=== PATIENT | female | born 1970 | race African-American/Black ===

== ENCOUNTER 2016-10-05 17:31 | Emergency (ER) | payer BC, OTHER ==
[~2016-10-05] VITALS: Ht 162.6 cm; Wt 104.3 kg
[~2016-10-05 17:31] MED LIST: ACCL20 PO; IPRA1AER2 INH; LORA10TA5 PO; SYMIN160 PO
[2016-10-05 17:36] VITALS: TEMP 36.9; Ht 162.6 cm; Wt 104.3 kg
[2016-10-05] MEDS ORDERED: SODIUM CHLORIDE 0.9% 1000ML 1,000 ML IV STA (17:56)
[2016-10-05] MEDS ORDERED: KETOROLAC TROMETHAMINE 30 MG/ML VIAL IV STA (17:56)
[2016-10-05 18:13] LABS: BASO % 0.8 %; BASO ABS # 0.05 K/uL (0-0.2); COMPLETE YES; EOS % 6.4 %; HEMATOCRIT 39.7 % (37-47); IG% 0.2 %; LYMPH % 36.3 %; LYMPH ABS # 2.39 K/uL (1.2-3.4); MEAN CORPUSCULAR HEMOGLOBIN 26.7 pg (25-34); MEAN PLATELET VOLUME 9.1 fL (7.4-10.4); MONO % 5.6 %; NEUT % 50.7 %; PLATELET COUNT 361 K/uL (130-400); WHITE BLOOD COUNT 6.59 K/uL (4.8-10.8)
[2016-10-05] MEDS ORDERED: HYDR12.55 PO (18:19)
[2016-10-05 18:32] LABS: ALT/SGPT 22 U/L (12-78); AST/SGOT 13 U/L (15-37); BLOOD UREA NITROGEN 12 mg/dl (7-18); BUN/CREATININE RATIO 12.8 (10-20); CALCIUM 9.1 mg/dl (8.5-10.1); CARBON DIOXIDE 31 mmol/L (21-32); CHLORIDE 101 mmol/L (98-107); CREATININE 0.95 mg/dl (0.60-1.20); GLUCOSE 64 mg/dl (70-99); POTASSIUM 3.2 mmol/L (3.5-5.1); SODIUM 139 mmol/L (136-145)
--- NOTE | 2016-10-05 18:34 | DIAGNOSTIC IMAGING REPORT ---
CHEST ONE VIEW PORTABLE CLINICAL HISTORY: Fever. Sepsis. COMPARISON STUDY: Chest radiograph June 02, 2015. FINDINGS: No pneumothorax is present. Lung volumes are mildly diminished. There is no evidence of pulmonary edema. Cardiomediastinal silhouette is stable. This study is compromised by overlying artifact. Minimal left basilar opacity is suggestive of atelectasis. IMPRESSION: 1. No acute findings. 2. Mild bibasilar opacities which favor atelectasis. Mildly diminished lung volumes. 3. Nodular densities which project over the left upper lung likely due to overlying soft tissue artifact. Electronically signed by: Kingsley Arita M.D. 10/05/2016 6:31 PM Dictated Date/Time: 10/05/2016 6:30 PM
[2016-10-05 18:43] LABS: ALKALINE PHOSPHATASE 96 U/L (45-117)
[2016-10-05] MEDS ORDERED: OPTIRAY 320 IV PRN (20:15)
--- NOTE | 2016-10-05 20:40 | DIAGNOSTIC IMAGING REPORT ---
CT ANGIOGRAPHY OF THE CHEST, PULMONARY EMBOLUS PROTOCOL CLINICAL HISTORY: Chest pain. COMPARISON STUDY: Chest CT July 19, 2012 and chest radiograph performed earlier today. TECHNIQUE: Following IV administration of 81 mL of Optiray-320, helical axial images of the chest were obtained utilizing the pulmonary embolus protocol. Maximal intensity projections and sagittal and coronal reformats were viewed on an independent 3D workstation. IV contrast was administered without complication. CT DOSE: 424.76 mGy.cm FINDINGS: No pulmonary emboli are identified. There is borderline cardiomegaly. There is no evidence of thoracic aortic dissection. Mild elevation the right hemidiaphragm is noted. Groundglass opacities represent atelectasis. There is no consolidation. There is mild bronchial wall thickening. No pneumothorax or pleural effusion is present. The bony thorax is unremarkable. The upper abdomen is unremarkable. IMPRESSION: 1. No pulmonary emboli identified. 2. Ground glass opacities suggestive of atelectasis. No acute intrathoracic findings. Electronically signed by: Kingsley Arita M.D. 10/05/2016 8:38 PM Dictated Date/Time: 10/05/2016 8:30 PM
[2016-10-05 20:51] VITALS: BP 118/82; PULSE 76; O2SAT 99
--- NOTE | 2016-10-05 20:53 | EMERGENCY ROOM VISIT NOTE ---
History Report prepared by Bradleyibtamiko: Sangeetha Juárez Under the Supervision of: Dr. Marcelo Stone D.O. First contact with patient: 17:51 Chief Complaint: CARDIAC ASSESSMENT Stated Complaint: CHEST PAIN Nursing Triage Summary: Patient presents with a left sided chest pain reproducible with deep inspiration, movement and palpation. Negative cough. Negative nausea/vomiting/diaphoresis. Patient awake and oriented. History of Present Illness The patient is a 46 year old female who presents to the Emergency Room with complaints of intermittent left-sided chest pain that started earlier today. She describes the pain as an ache in the muscle and states that it becomes sharp when she moves or takes a deep breath. She is also experiencing some shortness of breath but she thinks that may be a result of her asthma. She denies fevers, cough, recent illness, nausea, and vomiting. The patient denies any cardiac history along with any history of blood clots. The patient does not smoke. Source of History: patient Onset: earlier today Position: chest (left) Quality: ache, sharp (with movement or deep breathing) Timing: intermittent Modifying Factors (Worsening): breathing (deep breathing), movement Associated Symptoms: + SOB, No cough, No fevers, No nausea, No vomiting Note: no recent illness Review of Systems See HPI for pertinent positives & negatives. A total of 10 systems reviewed and were otherwise negative. Past Medical & Surgical Medical Problems: (1) Asthma Family History Cancer Social History Smoking Status: Never Smoker Alcohol Use: none Drug Use: none Marital Status: Housing Status: lives with family Occupation Status: employed Current/Historical Medications Scheduled Budesonide/Formoterol Fumarate (Symbicort 160/4.5 Inhaler), 1 PUFF PO BID Hydrochlorothiazide (Hydrochlorothiazide), 12.5 MG PO DAILY Ipratropium-Albuterol (Combivent Respimat), 1 PUFF INH QID Zafirlukast (Zafirlukast), 20 MG PO BID Allergies Coded Allergies: No Known Allergies (Verified , 06/02/15) Physical Exam Vital Signs Date Time Temp Pulse Resp B/P Pulse Ox O2 Delivery O2 Flow Rate FiO2 10/05/16 20:51 76 16 118/82 99 10/05/16 18:50 77 16 142/87 100 Room Air 10/05/16 17:59 72 10/05/16 17:46 Room Air 10/05/16 17:36 36.9 82 18 161/107 99 Room Air Physical Exam CONSTITUTIONAL/VITAL SIGNS: Reviewed / noted above. GENERAL: Non-toxic in appearance. INTEGUMENTARY: Warm, dry, and [place]. HEAD: Normocephalic. EYES: without scleral icterus or trauma. ENT/OROPHARYNX: clear and moist. LYMPHADENOPATHY/NECK: Is supple without lymphadenopathy or meningismus. RESPIRATORY: Lungs clear and equal. CARDIOVASCULAR: Regular rate and rhythm. GI/ABDOMEN: Soft and nontender. No organomegaly or pulsatile mass. No rebound or guarding. Normal bowel sounds. EXTREMITIES: Warm and well perfused. BACK: No CVA tenderness. NEUROLOGICAL: Intact without focal deficits. PSYCHIATRIC: normal affect. MUSCULOSKELETAL: Normally developed with good muscle tone. Medical Decision & Procedures ER Provider Diagnostic Interpretation: X ray results and stated below per my interpretation and radiology interpretation. CHEST ONE VIEW PORTABLE CLINICAL HISTORY: Fever. Sepsis. COMPARISON STUDY: Chest radiograph June 02, 2015. FINDINGS: No pneumothorax is present. Lung volumes are mildly diminished. There is no evidence of pulmonary edema. Cardiomediastinal silhouette is stable. This study is compromised by overlying artifact. Minimal left basilar opacity is suggestive of atelectasis. IMPRESSION: 1. No acute findings. 2. Mild bibasilar opacities which favor atelectasis. Mildly diminished lung volumes. 3. Nodular densities which project over the left upper lung likely due to overlying soft tissue artifact. Electronically signed by: Kingsley Arita M.D. 10/05/2016 6:31 PM Dictated Date/Time: 10/05/2016 6:[address] ANGIOGRAPHY OF THE CHEST, PULMONARY EMBOLUS PROTOCOL CLINICAL HISTORY: Chest pain. COMPARISON STUDY: Chest CT July 19, 2012 and chest radiograph performed earlier today. TECHNIQUE: Following IV administration of 81 mL of Optiray-320, helical axial images of the chest were obtained utilizing the pulmonary embolus protocol. Maximal intensity projections and sagittal and coronal reformats were viewed on an independent 3D workstation. IV contrast was administered without complication. CT DOSE: 424.76 mGy.cm FINDINGS: No pulmonary emboli are identified. There is borderline cardiomegaly. There is no evidence of thoracic aortic dissection. Mild elevation the right hemidiaphragm is noted. Groundglass opacities represent atelectasis. There is no consolidation. There is mild bronchial wall thickening. No pneumothorax or pleural effusion is present. The bony thorax is unremarkable. The upper abdomen is unremarkable. IMPRESSION: 1. No pulmonary emboli identified. 2. Ground glass opacities suggestive of atelectasis. No acute intrathoracic findings. Electronically signed by: Kingsley Arita M.D. 10/05/2016 8:38 PM Dictated Date/Time: 10/05/2016 8:30 PM Laboratory Results 10/05/16 18:00 Red Blood Count 4.90, Mean Corpuscular Volume 81.0, Mean Corpuscular Hemoglobin 26.7, Mean Corpuscular Hemoglobin Concent 33.0, Mean Platelet Volume 9.1, Neutrophils (%) (Auto) 50.7, Lymphocytes (%) (Auto) 36.3, Monocytes (%) (Auto) 5.6, Eosinophils (%) (Auto) 6.4, Basophils (%) (Auto) 0.8, Neutrophils # (Auto) 3.35, Lymphocytes # (Auto) 2.39, Monocytes # (Auto) 0.37, Eosinophils # (Auto) 0.42, Basophils # (Auto) 0.05 10/05/16 18:00 Test 10/05/16 18:00 White Blood Count 6.59 K/uL (4.8-10.8) Red Blood Count 4.90 M/uL (4.2-5.4) Hemoglobin 13.1 g/dL (12.0-16.0) Hematocrit 39.7 % (37-47) Mean Corpuscular Volume 81.0 fL (80-100) Mean Corpuscular Hemoglobin 26.7 pg (25-34) Mean Corpuscular Hemoglobin Concent 33.0 g/dl (32-36) Platelet Count 361 K/uL (130-400) Mean Platelet Volume 9.1 fL (7.4-10.4) Neutrophils (%) (Auto) 50.7 % Lymphocytes (%) (Auto) 36.3 % Monocytes (%) (Auto) 5.6 % Eosinophils (%) (Auto) 6.4 % Basophils (%) (Auto) 0.8 % Neutrophils # (Auto) 3.35 K/uL (1.4-6.5) Lymphocytes # (Auto) 2.39 K/uL (1.2-3.4) Monocytes # (Auto) 0.37 K/uL (0.11-0.59) Eosinophils # (Auto) 0.42 K/uL (0-0.5) Basophils # (Auto) 0.05 K/uL (0-0.2) RDW Standard Deviation 42.8 fL (36.4-46.3) RDW Coefficient of Variation 14.5 % (11.5-14.5) Immature Granulocyte % (Auto) 0.2 % Immature Granulocyte # (Auto) 0.01 K/uL (0.00-0.02) Prothrombin Time 11.0 SECONDS (9.0-12.0) Prothromb Time International Ratio 1.0 (0.9-1.1) Activated Partial Thromboplast Time 26.5 SECONDS (21.0-31.0) Partial Thromboplastin Ratio 1.0 D-Dimer 700 ug/L FEU (0-500) Anion Gap 7.0 mmol/L (3-11) Est Creatinine Clear Calc Drug Dose 85.2 ml/min Estimated GFR () 82.1 Estimated GFR (Non- 70.8 BUN/Creatinine Ratio 12.8 (10-20) Calcium Level 9.1 mg/dl (8.5-10.1) Total Bilirubin 0.2 mg/dl (0.2-1) Direct Bilirubin < 0.1 mg/dl (0-0.2) Aspartate Amino Transf (AST/SGOT) 13 U/L (15-37) Alanine Aminotransferase (ALT/SGPT) 22 U/L (12-78) Alkaline Phosphatase 96 U/L (45-117) Total Creatine Kinase 135 U/L (26-192) Creatine Kinase MB < 0.5 ng/ml (0.5-3.6) Creatine Kinase MB Ratio (0-3.0) Troponin I < 0.015 ng/ml (0-0.045) Total Protein 8.1 gm/dl (6.4-8.2) Albumin 3.8 gm/dl (3.4-5.0) Lipase 218 U/L (73-393) Thyroid Stimulating Hormone (TSH) 1.490 uIu/ml (0.300-4.500) Laboratory results as stated above per my review. Medications Administered Medications (Trade) Dose Ordered Sig/Lenny Route Start Time Stop Time Status Last Admin Dose Admin Sodium Chloride (Nss 1000ml) 1,000 ml @ 999 mls/hr Q1H1M STAT IV 10/05/16 17:56 10/05/16 18:56 DC 10/05/16 18:10 999 MLS/HR Ketorolac Tromethamine (Toradol Inj) 30 mg NOW STAT IV 10/05/16 17:56 10/05/16 17:58 DC 10/05/16 18:08 30 MG ECG Indication: chest pain Rate (beats per minute): 73 Rhythm: normal sinus Findings: no acute ischemic change, no ectopy ED Course 1751: Previous medical records were reviewed. The patient was evaluated in room A3. A complete history and physical examination was performed. 1755: Ordered Toradol Inj 30 mg IV, Sodium Chloride 1000 ml @ 999 mls/hr IV 2003: I reassessed the patient. I informed her of her D-dimer results and told her that she needs a CT scan to rule out a pulmonary embolus. 2054: On reevaluation, the patient is doing well. I discussed the results and findings with the patient. She verbalized agreement of the treatment plan. She was discharged home. Medical Decision The differential was considered includes acute myocardial infarction, acute coronary syndrome, myocarditis, pericarditis, pericardial effusions /tamponad, esophageal perforation, thoracic aortic dissection, pulmonary embolism, pneumonia, pneumothorax, pancreatitis, shingles, acute cholecystitis, perforated abdominal viscus. This is a 46-year-old female who presents to the ED with a chief complaint of chest pain. The patient states it is sharp and achy pain and worse with deep breathing, certain movements such as rotation and bending over. She has a little associated shortness of breath but attributes this to her baseline asthma. The patient denies any nausea or vomiting. She has not had any recent illness or cough. Her vital signs are stable. Physical exam was unremarkable with the exception of some reproducible pain with certain movements. EKG shows a normal sinus rhythm at a rate of 73. CBC is normal. TSH is normal. Troponin is negative. D-dimer is elevated at 700. Chest x-ray did not show acute disease. A CT scan of the chest was negative for PE or other acute process. The patient was told the results. She is treated with IV Toradol. She is felt to be stable for discharge and outpatient follow-up. Impression Primary Impression: Chest wall pain Scribe Attestation The scribe's documentation has been prepared under my direction and personally reviewed by me in its entirety. I confirm that the note above accurately reflects all work, treatment, procedures, and medical decision making performed by me. Departure Information Dispostion Home / Self-Care Referrals RV. Hernandez MD (PCP) Forms IMPORTANT VISIT INFORMATION Patient Instructions A Signature Page, Chest Pain - [facility], [facility] Additional Instructions Test results did not show any serious cause for your symptoms. Take ibuprofen 600 mg every 6 hours for pain. Follow-up with your doctor if symptoms don't improve over the next 5-7 days. Return here for worsening.
== END 2016-10-05 21:38 | disposition home or self-care (01) ==
LOC: C.EDB 17:32 → C.EDA 21:38
DX: R07.89 Other chest pain (principal); J45.909 Unspecified asthma, uncomplicated

== ENCOUNTER 2016-11-08 17:12 | Emergency (ER) | payer OTHER ==
[~2016-11-08] VITALS: Ht 162.6 cm; Wt 103.2 kg
[~2016-11-08 17:12] MED LIST changes: +HYDR12.55 PO; -LORA10TA5 PO
[2016-11-08 17:17] VITALS: TEMP 37; Ht 162.6 cm; Wt 103.2 kg
[2016-11-08] MEDS ORDERED: ACETAMINOPHEN 500 MG TAB PO STA (17:54)
[2016-11-08] MEDS ORDERED: IBUPROFEN 200 MG TAB PO STA (17:54)
--- NOTE | 2016-11-08 17:59 | EMERGENCY ROOM VISIT NOTE ---
History Report prepared by Jammie: Cale Downey Under the Supervision of: Dr. Yann Piper M.D. First contact with patient: 17:44 Chief Complaint: CHEST PAIN Stated Complaint: CHEST PAIN Nursing Triage Summary: feeling fatiqued, having chest pains, I felt I had to belch all day. "I have appointment with my dr tomorrow." hx asthma History of Present Illness The patient is a 46 year old female who presents to the Emergency Room with complaints of constant chest pain and tightness for the past two days. The patient states that it is worse with movement and coughing. The patient additionally states that she has been having some shortness of breath. The patient states that she was here about five weeks ago for similar symptoms. She states that she was around a lot of smokers the other day. The patient states that she has been asthmatic, and she used a nebulizer, and this helped her breathing, however it did not help her chest tightness. She states that at work today it felt like she constantly had to belch even though she did not eat much all day. Source of History: patient Onset: two days ago Position: chest Quality: other (tightness) Timing: constant Associated Symptoms: + SOB Review of Systems See HPI for pertinent positives & negatives. A total of 10 systems reviewed and were otherwise negative. Past Medical & Surgical Medical Problems: (1) Asthma Family History Cancer Social History Smoking Status: Never Smoker Alcohol Use: none Drug Use: none Marital Status: Housing Status: lives with family Occupation Status: employed Current/Historical Medications Scheduled Budesonide/Formoterol Fumarate (Symbicort 160/4.5 Inhaler), 1 PUFF PO BID Hydrochlorothiazide (Hydrochlorothiazide), 12.5 MG PO DAILY Ipratropium-Albuterol (Combivent Respimat), 1 PUFF INH QID Zafirlukast (Zafirlukast), 20 MG PO BID Allergies Coded Allergies: No Known Allergies (Verified , 06/02/15) Physical Exam Vital Signs Date Time Temp Pulse Resp B/P Pulse Ox O2 Delivery O2 Flow Rate FiO2 11/08/16 18:30 90 18 134/92 97 Room Air 11/08/16 18:00 88 11/08/16 17:58 92 16 135/108 100 Room Air 11/08/16 17:17 37.0 89 18 149/108 98 Room Air Physical Exam CONSTITUTIONAL: Anxious in no acute distress HEENT: No icterus, moist mucous membranes NECK: No meningismus, trachea is midline. CARDIOVASCULAR: Regular rate, normal perfusion RESPIRATORY: Unlabored breathing. Clear to auscultation. GASTROINTESTINAL: Non-tender GENITOURINARY: No flank tenderness MUSCULOSKELETAL: Full range of motion NEUROLOGIC: No acute gross focal deficits. PSYCHIATRIC: Normal affect SKIN: Normal for ethnicity. Medical Decision & Procedures ER Provider Diagnostic Interpretation: X-ray results as stated below per interpretation by me and the radiologist. TWO VIEW CHEST CLINICAL HISTORY: Atypical chest pain. FINDINGS: PA and lateral chest radiographs are compared to chest x-ray and chest CT dated 10/05/2016. The cardiomediastinal silhouette is unremarkable. There is mild atherosclerotic calcification of the thoracic area. Chronic interstitial thickening is similar to previous. There is dependent atelectasis. No airspace consolidation or pleural effusion is seen. There is no pneumothorax. The skeletal structures are osteopenic. Degenerative change is noted in the thoracic spine. IMPRESSION: No active disease in the chest and no significant change from recent prior studies. Electronically signed by: Silvio Cowart M.D. 11/08/2016 7:27 PM Dictated Date/Time: 11/08/2016 7:26 PM Laboratory Results 11/08/16 18:48 Red Blood Count 4.93, Mean Corpuscular Volume 82.2, Mean Corpuscular Hemoglobin 27.0, Mean Corpuscular Hemoglobin Concent 32.8, Mean Platelet Volume 9.4, Neutrophils (%) (Auto) 68.2, Lymphocytes (%) (Auto) 21.9, Monocytes (%) (Auto) 3.9, Eosinophils (%) (Auto) 5.2, Basophils (%) (Auto) 0.5, Neutrophils # (Auto) 5.35, Lymphocytes # (Auto) 1.72, Monocytes # (Auto) 0.31, Eosinophils # (Auto) 0.41, Basophils # (Auto) 0.04 11/08/16 18:48 Test 11/08/16 18:48 White Blood Count 7.85 K/uL (4.8-10.8) Red Blood Count 4.93 M/uL (4.2-5.4) Hemoglobin 13.3 g/dL (12.0-16.0) Hematocrit 40.5 % (37-47) Mean Corpuscular Volume 82.2 fL (80-100) Mean Corpuscular Hemoglobin 27.0 pg (25-34) Mean Corpuscular Hemoglobin Concent 32.8 g/dl (32-36) Platelet Count 337 K/uL (130-400) Mean Platelet Volume 9.4 fL (7.4-10.4) Neutrophils (%) (Auto) 68.2 % Lymphocytes (%) (Auto) 21.9 % Monocytes (%) (Auto) 3.9 % Eosinophils (%) (Auto) 5.2 % Basophils (%) (Auto) 0.5 % Neutrophils # (Auto) 5.35 K/uL (1.4-6.5) Lymphocytes # (Auto) 1.72 K/uL (1.2-3.4) Monocytes # (Auto) 0.31 K/uL (0.11-0.59) Eosinophils # (Auto) 0.41 K/uL (0-0.5) Basophils # (Auto) 0.04 K/uL (0-0.2) RDW Standard Deviation 44.6 fL (36.4-46.3) RDW Coefficient of Variation 14.8 % (11.5-14.5) Immature Granulocyte % (Auto) 0.3 % Immature Granulocyte # (Auto) 0.02 K/uL (0.00-0.02) Prothrombin Time 11.3 SECONDS (9.0-12.0) Prothromb Time International Ratio 1.1 (0.9-1.1) Activated Partial Thromboplast Time 28.9 SECONDS (21.0-31.0) Partial Thromboplastin Ratio 1.1 Anion Gap 8.0 mmol/L (3-11) Est Creatinine Clear Calc Drug Dose 94.7 ml/min Estimated GFR () 93.9 Estimated GFR (Non- 81.0 BUN/Creatinine Ratio 9.2 (10-20) Calcium Level 9.2 mg/dl (8.5-10.1) Troponin I < 0.015 ng/ml (0-0.045) Labs reviewed by ED physician. ECG Indication: chest pain Rate (beats per minute): 85 Rhythm: sinus rhythm Findings: no ectopy, other (Non-specific ST findings) ED Course 1743: Past medical records reviewed. The patient was evaluated in room B11. A complete history and physical examination was performed. 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 2004: Upon reexamination the patient is feeling better. I discussed results and treatment plan with the patient. She verbalizes agreement and understanding. The patient is ready for discharge. 2015: Percocet 5/325mg 1 Home Pack PO Medical Decision Differential diagnoses include but are not limited to; pleurisy, musculoskeletal pain, pulmonary embolus, myocarditis, somatic complaints. 46 y/o presented to ED with vague chest pain, constant for about 2 days worse with position, coughing and breathing. (-) exertional. h/o asthma. Seen in ED several weeks ago "for the same pain" "and its not better" at which time CTA Chest was negative and patient was discharged. (-) ROS negative other than recent smoke exposure in context of asthma although lungs clear to auscultation on exam today. Patient's subjective report and affect not consistent with emergent pathology in my 10+ years of experience. Vitals WNL, EKG satisfactory and patient appeared anxious but not in acute painful distress. I informed patient on my first encounter that she would receive Tylenol and Motrin and we would assess for acute pathology. At the first encounter prior to receiving these patient noted she would like "something stronger." I emphasized an emergency screening examination would be performed and analgesics provided consistent with objective findings, especially in the context of a recent ED visit for the same complaint. RNs later report patient requesting "strong" pain medications. I emphasized that I had already discussed the plan with the patient and would reconnect once the results were complete in the interest of other patients in the emergency room. I asked the RN to have nursing crossing supervisor intervene should the patient have further concerns around analgesic management. It is noted there is no analgesic organizational guidelines for pain control in a non-emergent situations for the emergency department although the standard of care I provided today is consistent with generally recognized guidelines of emergency medicine. Patient clearly stated her dissatisfaction with my approach to analgesic management. "I have never been treated like this before at 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 She notes that "one dose won't kill me" and feels that I should have provided her IV opiates while here for her subjective pain. She states "I just need something to sleep tonight." Percocet home pack provided as it is late at night and a prescription cannot be immediately filled. I requested RN Director Of Social Services document patient concerns around client-patient service and as well as organizational mission and values. Impression Primary Impression: Chest pain Scribe Attestation The scribe's documentation has been prepared under my direction and personally reviewed by me in its entirety. I confirm that the note above accurately reflects all work, treatment, procedures, and medical decision making performed by me. Departure Information Dispostion Home / Self-Care Referrals RV. Hernandez MD (PCP) Forms HOME CARE DOCUMENTATION FORM, IMPORTANT VISIT INFORMATION Patient Instructions Chest Pain - [facility], [facility]
[2016-11-08 19:10] LABS: BASO % 0.5 %; BASO ABS # 0.04 K/uL (0-0.2); COMPLETE YES; EOS % 5.2 %; HEMATOCRIT 40.5 % (37-47); IG% 0.3 %; LYMPH % 21.9 %; LYMPH ABS # 1.72 K/uL (1.2-3.4); MEAN CELL VOLUME 82.2 fL (80-100); MEAN CORPUSCULAR HGB CONC 32.8 g/dl (32-36); MEAN PLATELET VOLUME 9.4 fL (7.4-10.4); MONO % 3.9 %; NEUT % 68.2 %; PLATELET COUNT 337 K/uL (130-400); RED BLOOD COUNT 4.93 M/uL (4.2-5.4); WHITE BLOOD COUNT 7.85 K/uL (4.8-10.8)
[2016-11-08 19:15] LABS: INR 1.1 (0.9-1.1); PROTHROMBIN TIME (PATIENT) 11.3 SECONDS (9.0-12.0)
[2016-11-08 19:25] LABS: BLOOD UREA NITROGEN 8 mg/dl (7-18); BUN/CREATININE RATIO 9.2 (10-20); CALCIUM 9.2 mg/dl (8.5-10.1); CARBON DIOXIDE 30 mmol/L (21-32); CHLORIDE 100 mmol/L (98-107); CREATININE 0.85 mg/dl (0.60-1.20); GLUCOSE 72 mg/dl (70-99); POTASSIUM 3.3 mmol/L (3.5-5.1); SODIUM 138 mmol/L (136-145)
[2016-11-08 19:29] LABS: PARTIAL THROMBOPLASTIN RATIO 1.1
--- NOTE | 2016-11-08 19:29 | DIAGNOSTIC IMAGING REPORT ---
TWO VIEW CHEST CLINICAL HISTORY: Atypical chest pain. FINDINGS: PA and lateral chest radiographs are compared to chest x-ray and chest CT dated 10/05/2016. The cardiomediastinal silhouette is unremarkable. There is mild atherosclerotic calcification of the thoracic area. Chronic interstitial thickening is similar to previous. There is dependent atelectasis. No airspace consolidation or pleural effusion is seen. There is no pneumothorax. The skeletal structures are osteopenic. Degenerative change is noted in the thoracic spine. IMPRESSION: No active disease in the chest and no significant change from recent prior studies. Electronically signed by: Silvio Cowart M.D. 11/08/2016 7:27 PM Dictated Date/Time: 11/08/2016 7:26 PM
[2016-11-08 19:59] VITALS: BP 136/104
[2016-11-08] MEDS ORDERED: PERCOCET HOME PACK PO ONE (20:15)
[2016-11-08 20:30] VITALS: PULSE 90; O2SAT 97
== END 2016-11-08 20:25 | disposition home or self-care (01) ==
LOC: C.EDB 17:13
DX: R07.9 Chest pain, unspecified (principal); J45.909 Unspecified asthma, uncomplicated

== ENCOUNTER → 2017-05-17 | Outpatient (CLI) | payer OTHER | END | disposition home or self-care (01) | LOC: C.PAPS 12:02 | PROVIDERS: ATTEND Obstetrics & Gynecology | DX: Z01.419 Encounter for gynecological examination (general) (routine) without abnormal findings (principal) ==

== ENCOUNTER → 2017-05-17 | Outpatient (CLI) | payer OTHER | END | disposition home or self-care (01) | LOC: C.LABSPEC 11:42 | PROVIDERS: ATTEND Obstetrics & Gynecology | DX: Z01.419 Encounter for gynecological examination (general) (routine) without abnormal findings (principal); N76.0 Acute vaginitis ==

== ENCOUNTER → 2017-08-22 | Outpatient (CLI) | payer OTHER ==
[2017-08-22 18:01] LABS: BASO % 0.4 %; BASO ABS # 0.03 K/uL (0-0.2); COMPLETE YES; EOS % 3.4 %; HEMATOCRIT 38.9 % (37-47); IG% 0.1 %; LYMPH % 28.8 %; LYMPH ABS # 2.46 K/uL (1.2-3.4); MEAN CELL VOLUME 84.9 fL (80-100); MEAN CORPUSCULAR HEMOGLOBIN 26.6 pg (25-34); MEAN CORPUSCULAR HGB CONC 31.4 g/dl (32-36); MEAN PLATELET VOLUME 9.5 fL (7.4-10.4); NEUT % 62.3 %; PLATELET COUNT 353 K/uL (130-400); RED BLOOD COUNT 4.58 M/uL (4.2-5.4); WHITE BLOOD COUNT 8.53 K/uL (4.8-10.8)
[2017-08-22 18:21] LABS: ALT/SGPT 23 U/L (12-78); BLOOD UREA NITROGEN 12 mg/dl (7-18); BUN/CREATININE RATIO 14.7 (10-20); CALCIUM 9.1 mg/dl (8.5-10.1); CARBON DIOXIDE 27 mmol/L (21-32); CHLORIDE 104 mmol/L (98-107); GLUCOSE 80 mg/dl (70-99); POTASSIUM 3.8 mmol/L (3.5-5.1); SODIUM 139 mmol/L (136-145)
[2017-08-22 18:24] LABS: ALB/GLOB RATIO 0.8 (0.9-2); ALKALINE PHOSPHATASE 93 U/L (45-117); AST/SGOT 13 U/L (15-37)
== END | disposition home or self-care (01) ==
LOC: C.LAB1850 17:00
PROVIDERS: ATTEND Internal Medicine
DX: R07.89 Other chest pain (principal); R77.1 Abnormality of globulin; R79.82 Elevated C-reactive protein (CRP); R70.0 Elevated erythrocyte sedimentation rate; R77.8 Other specified abnormalities of plasma proteins

== ENCOUNTER 2017-09-25 14:56 | Emergency (ER) | payer OTHER ==
[~2017-09-25] VITALS: Ht 162.6 cm; Wt 100.8 kg
[~2017-09-25 14:56] MED LIST changes: -ACCL20 PO; -HYDR12.55 PO; +ZAFI1TAB11 PO
[2017-09-25 14:58] VITALS: TEMP 36.7; Ht 162.6 cm; Wt 100.8 kg
[2017-09-25] MEDS ORDERED: METHYLPREDNISOLONE 125 MG VIAL IV STA (15:10)
[2017-09-25] MEDS ORDERED: ALBUT/IPRATROP 3MG/0.5MG NEB 3 ML VIAL INH ONE (15:15)
[2017-09-25] MEDS ORDERED: MOME200A INH (15:20)
[2017-09-25] MEDS ORDERED: HYDR-389 PO (15:20)
[2017-09-25] MEDS ORDERED: SNG10 PO (15:20)
[2017-09-25 15:32] VITALS: PULSE 73; O2SAT 97
--- NOTE | 2017-09-25 15:56 | DIAGNOSTIC IMAGING REPORT ---
CHEST ONE VIEW PORTABLE CLINICAL HISTORY: sob wheezing dyspnea COMPARISON STUDY: 08/01/2017 FINDINGS: Mild cardiomegaly. Subtle interstitial prominence both lung bases. Mid and upper lungs are considered clear. IMPRESSION: Nonspecific mild interstitial prominence both lung bases. Early basilar pneumonitis is not excluded. The above report was generated using voice recognition software. It may contain grammatical, syntax or spelling errors. Electronically signed by: Jan Roach M.D. 09/25/2017 3:54 PM Dictated Date/Time: 09/25/2017 3:53 PM
[2017-09-25] MEDS ORDERED: AZITHROMYCIN 250 MG TAB PO STA (17:11)
[2017-09-25] MEDS ORDERED: ALBUT/IPRATROP 3MG/0.5MG NEB 3 ML VIAL INH STA (17:11)
[2017-09-25 17:20] LABS: BASO % 0.6 %; BASO ABS # 0.04 K/uL (0-0.2); EOS % 7.4 %; EOS ABS # 0.46 K/uL (0-0.5); HEMOGLOBIN 13.7 g/dL (12.0-16.0); IG# 0.01 K/uL (0.00-0.02); LYMPH % 30.6 %; MEAN CELL VOLUME 83.5 fL (80-100); MEAN CORPUSCULAR HEMOGLOBIN 27.2 pg (25-34); MEAN CORPUSCULAR HGB CONC 32.6 g/dl (32-36); MEAN PLATELET VOLUME 9.6 fL (7.4-10.4); MONO ABS # 0.25 K/uL (0.11-0.59); NEUT % 57.2 %; NEUT ABS # 3.55 K/uL (1.4-6.5); PLATELET COUNT 336 K/uL (130-400); RED CELL DISTRIBUTION WIDTH CV 15.1 % (11.5-14.5); RED CELL DISTRIBUTION WIDTH SD 46.4 fL (36.4-46.3); WHITE BLOOD COUNT 6.21 K/uL (4.8-10.8)
[2017-09-25 17:35] LABS: CALCIUM 9.2 mg/dl (8.5-10.1); CREATININE 0.84 mg/dl (0.60-1.20); POTASSIUM 3.4 mmol/L (3.5-5.1)
[2017-09-25] MEDS ORDERED: KETOROLAC TROMETHAMINE 30 MG/ML VIAL IV STA (17:56)
[2017-09-25] MEDS ORDERED: DOXY100C PO (17:58)
[2017-09-25] MEDS ORDERED: PRED50TA PO ×2 (17:58→18:01)
[2017-09-25] MEDS ORDERED: DOXYCYCLINE HYCLATE 100 MG CAP PO ONE (18:00)
[2017-09-25] MEDS ORDERED: HYDR12.55 PO (18:19)
[2017-09-25 18:29] VITALS: BP 141/94; PULSE 96; O2SAT 100
--- NOTE | 2017-09-25 20:41 | EMERGENCY ROOM VISIT NOTE ---
History Report prepared by Scribe: Valerie Wu Under the Supervision of: Dr. Charlie Bueno D.O. First contact with patient: 15:00 Chief Complaint: RESPIRATORY PROBLEMS Stated Complaint: ASTHMA History of Present Illness The patient is a 47 year old female who presents to the Emergency Room with complaints of persistent respiratory problems for the past 4 to 5 days. She admits to a history of asthma and states her breathing has worsened in the past 2 days. She has been calling Dr. Hernandez's office at [facility] and reports his office referred her here to the ED this afternoon. She has been using her inhalers and nebulizers with minimal relief. She has also experienced a cough with productive sputum but states her symptoms feel like her typical asthma attack. The patient denies any history of heart failure. She has experienced no swelling of her legs. She denies any recent exposures to chemicals or recent sick contacts. The patient denies any headache, change in vision, fevers, chest pain, nausea, vomiting, diarrhea, pain with urination, and melena. 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 A total of 10 systems reviewed and were otherwise negative. Past Medical & Surgical Medical Problems: (1) Asthma Family History Cancer Social History Smoking Status: Never Smoker Alcohol Use: none Drug Use: none Marital Status: Housing Status: lives with family Occupation Status: employed Current/Historical Medications Scheduled Doxycycline Hyclate (Vibramycin), 100 MG PO BID Hydrochlorothiazide (Hydrochlorothiazide), 12.5 MG PO DAILY Ipratropium-Albuterol (Combivent Respimat), 1 PUFF INH QID Mometasone Furoate-Formoterol (Dulera 200/5 Mcg), 2 PUFFS INH BID Montelukast Sod (Montelukast Sodium), 10 MG PO DAILY Prednisone (Prednisone), 50 MG PO DAILY Scheduled PRN Hydroxyzine Hcl (Atarax), 10 MG PO HS PRN for Itching Allergies Coded Allergies: No Known Allergies (Verified , 06/02/15) Physical Exam Vital Signs Date Time Temp Pulse Resp B/P (MAP) Pulse Ox O2 Delivery O2 Flow Rate FiO2 09/25/17 18:29 96 22 141/94 100 09/25/17 17:30 86 22 140/106 100 Room Air 09/25/17 15:32 73 18 97 Room Air 09/25/17 14:58 36.7 90 20 96 Room Air Physical Exam GENERAL: Sitting up in bed, alert, dyspneic with conversation, in minimal distress EYE EXAM: normal conjunctiva. OROPHARYNX: no exudate, no erythema, lips, buccal mucosa, and tongue normal and mucous membranes are moist NECK: supple, no nuchal rigidity, no adenopathy, non-tender, no JVD LUNGS: Diffuse wheezing bilaterally, most notable on expiratory phase. Normal chest wall mechanics HEART: no murmurs, S1 normal and S2 normal ABDOMEN: abdomen soft, non-tender, normo-active bowel sounds, no masses, no rebound or guarding. BACK: Back is symmetrical on inspection and there is no deformity, no midline tenderness, no CVA tenderness. SKIN: no rashes and no bruising UPPER EXTREMITIES: upper extremities are grossly normal. LOWER EXTREMITIES: No pitting edema. Calves are equal bilaterally. NEURO EXAM: Normal sensorium, cranial nerves II-XII grossly intact, normal speech, no gross weakness of arms, no gross weakness of legs. Gross sensation intact. Medical Decision & Procedures ER Provider Diagnostic Interpretation: Radiology results as stated below per my review and the radiologist's interpretation: CHEST ONE VIEW PORTABLE CLINICAL HISTORY: sob wheezing dyspnea COMPARISON STUDY: 08/01/2017 FINDINGS: Mild cardiomegaly. Subtle interstitial prominence both lung bases. Mid and upper lungs are considered clear. IMPRESSION: Nonspecific mild interstitial prominence both lung bases. Early basilar pneumonitis is not excluded. The above report was generated using voice recognition software. It may contain grammatical, syntax or spelling errors. Electronically signed by: Jan Roach M.D. 09/25/2017 3:54 PM Laboratory Results 09/25/17 16:44 Red Blood Count 5.03, Mean Corpuscular Volume 83.5, Mean Corpuscular Hemoglobin 27.2, Mean Corpuscular Hemoglobin Concent 32.6, Mean Platelet Volume 9.6, Neutrophils (%) (Auto) 57.2, Lymphocytes (%) (Auto) 30.6, Monocytes (%) (Auto) 4.0, Eosinophils (%) (Auto) 7.4, Basophils (%) (Auto) 0.6, Neutrophils # (Auto) 3.55, Lymphocytes # (Auto) 1.90, Monocytes # (Auto) 0.25, Eosinophils # (Auto) 0.46, Basophils # (Auto) 0.04 09/25/17 16:44 Test 09/25/17 16:44 White Blood Count 6.21 K/uL (4.8-10.8) Red Blood Count 5.03 M/uL (4.2-5.4) Hemoglobin 13.7 g/dL (12.0-16.0) Hematocrit 42.0 % (37-47) Mean Corpuscular Volume 83.5 fL (80-100) Mean Corpuscular Hemoglobin 27.2 pg (25-34) Mean Corpuscular Hemoglobin Concent 32.6 g/dl (32-36) Platelet Count 336 K/uL (130-400) Mean Platelet Volume 9.6 fL (7.4-10.4) Neutrophils (%) (Auto) 57.2 % Lymphocytes (%) (Auto) 30.6 % Monocytes (%) (Auto) 4.0 % Eosinophils (%) (Auto) 7.4 % Basophils (%) (Auto) 0.6 % Neutrophils # (Auto) 3.55 K/uL (1.4-6.5) Lymphocytes # (Auto) 1.90 K/uL (1.2-3.4) Monocytes # (Auto) 0.25 K/uL (0.11-0.59) Eosinophils # (Auto) 0.46 K/uL (0-0.5) Basophils # (Auto) 0.04 K/uL (0-0.2) RDW Standard Deviation 46.4 fL (36.4-46.3) RDW Coefficient of Variation 15.1 % (11.5-14.5) Immature Granulocyte % (Auto) 0.2 % Immature Granulocyte # (Auto) 0.01 K/uL (0.00-0.02) Anion Gap 6.0 mmol/L (3-11) Est Creatinine Clear Calc Drug Dose 93.6 ml/min Estimated GFR () 94.6 Estimated GFR (Non- 81.6 BUN/Creatinine Ratio 11.9 (10-20) Calcium Level 9.2 mg/dl (8.5-10.1) Laboratory results per my review. Medications Administered Medications (Trade) Dose Ordered Sig/Lenny Route Start Time Stop Time Status Last Admin Dose Admin Albuterol/ Ipratropium (Duoneb) 12 ml ONE ONCE INH 09/25/17 15:15 09/25/17 15:16 DC 09/25/17 15:32 12 ML Methylprednisolone Sodium Succinate (Solu-Medrol IV) 125 mg NOW STAT IV 09/25/17 15:10 09/25/17 15:11 DC 09/25/17 15:39 125 MG Albuterol/ Ipratropium (Duoneb) 3 ml NOW STAT INH 09/25/17 17:11 09/25/17 17:13 DC 09/25/17 17:49 3 ML Doxycycline Hyclate (Vibramycin Cap) 100 mg ONE ONCE PO 09/25/17 18:00 09/25/17 18:01 DC 09/25/17 18:21 100 MG Ketorolac Tromethamine (Toradol Inj) 30 mg NOW STAT IV 09/25/17 17:56 09/25/17 17:57 DC 09/25/17 18:22 30 MG ECG Indication: SOB/dyspnea Rate (beats per minute): 84 Rhythm: sinus rhythm Findings: no ectopy, other (normal axis) ED Course ED COURSE: Vital signs were reviewed and showed the patient is hypertensive. The patients medical record was reviewed The above diagnostic studies were performed and reviewed. ED treatments and interventions as stated above. 1505: The patient was evaluated in room B6. A complete history and physical examination was performed. 1510: Solu-Medrol 125 mg IV. 1515: DuoNeb 12 ml INH. 1710: I reevaluated the patient. She is feeling much better. 1711: DuoNeb 3 ml INH. 1750: Upon reevaluation, the patient is feeling well. Her wheezing has improved. She states she cannot take Azithromycin, so we will give her Amoxicillin. I discussed my findings with the patient and she understands and agrees with the treatment plan. 1756: Toradol 30 mg IV. 1800: Vibramycin Cap 100 mg PO. Based on the patients age, coexisting illnesses, exam and lab findings the decision to treat as an outpatient was made. The patient remained stable while under my care. The patient appeared well at the time of discharge. Medical Decision Differential diagnoses includes but is not limited to pneumonia, bronchitis, COPD/Asthma exacerbation, pneumothorax, pulmonary embolism, congestive heart failure, acute coronary syndrome Patient is a 47-year-old female with a past medical history of asthma that presents to ER for shortness of breath and per her report and asthma exacerbation. She notes her symptoms have been worsening over the past 5 days. Specifically over these past 2 days they have worsened even more. She does have a little bit of a cough and slightly productive sputum. CBC was unremarkable. BMP shows mild hypokalemia favor secondary to nebs. Chest x-ray shows no infiltrate. EKG was unremarkable. She was given an hour-long neb treatment. She had significant improvement of her symptoms. Following this she had slightly more wheezing. She is given a DuoNeb which helped to improve the additional wheezing that she got from increased aeration. Vitals remain stable. She was given doxycycline as she notes she cannot take azithromycin. She was also given IV steroids. She did not want to stay and was discharged to follow-up with PCP as an outpatient with steroids and doxycycline. Discussed with Pt concerning signs and symptoms to watch out for. Pt was instructed to follow up with their PCP and discussed with the patient their option to return to the ED at anytime for persistent or worsening symptoms. The appropriate anticipatory guidance and out-patient management, including indications for return to the emergency department, were explained at length to the patient and understood. Medication Reconcilliation Current Medication List: was personally reviewed by me Blood Pressure Screening Patient's blood pressure: Elevated blood pressure Blood pressure disposition: Referred to PCP Impression Primary Impression: Acute asthma exacerbation Additional Impression: Hypokalemia Scribe Attestation The scribe's documentation has been prepared under my direction and personally reviewed by me in its entirety. I confirm that the note above accurately reflects all work, treatment, procedures, and medical decision making performed by me. Departure Information Dispostion Home / Self-Care Prescriptions Prednisone (PREDNISONE) 50 Mg Tab 50 MG PO DAILY for 5 Days, #5 TAB Prov: Charlie Bueno, DO 09/25/17 Doxycycline Hyclate (VIBRAMYCIN) 100 Mg Cap 100 MG PO BID for 10 Days, CAP Prov: Charlie Bueno, DO 09/25/17 Referrals RV. Hernandez MD (PCP) Patient Instructions Asthma - [facility], [facility] Additional Instructions Please follow up with your primary care doctor with in the next 24 hours. Any worsening of your symptoms, please return to the ED immediately. This includes any fevers greater than 100.4, worsening pain, chest pain, shortness breath, persistent nausea, vomiting, unable to eat or drink, or any other concerning signs or symptoms from your standpoint. Please take steroids and antibiotics as prescribed. Problem Qualifiers Primary Impression: Acute asthma exacerbation Asthma severity: unspecified severity Asthma persistence: unspecified Qualified Codes: J45.901 - Unspecified asthma with (acute) exacerbation
[2018-03-27] MEDS ORDERED: LEVO1IUD2 IU (10:28)
[2018-03-27] MEDS ORDERED: MULTTAB58 PO (10:28)
[2018-03-27] MEDS ORDERED: IBUP-1428 PO (10:28)
[2018-03-27] MEDS ORDERED: FERR1TAB23 PO (10:28)
[2018-03-27] MEDS ORDERED: IPRA-64 INH (10:28)
[2018-03-27] MEDS ORDERED: PRED10PA3 PO (10:28)
== END 2017-09-25 18:30 | disposition home or self-care (01) ==
LOC: C.EDB 14:57
DX: J45.901 Unspecified asthma with (acute) exacerbation (principal); E87.6 Hypokalemia

== ENCOUNTER → 2017-12-01 | Outpatient (CLI) | payer OTHER ==
[~2017-12-01] MED LIST changes: +HYDR-389 PO; +HYDR12.55 PO; +MOME200A INH; +SNG10 PO; -SYMIN160 PO; -ZAFI1TAB11 PO
--- NOTE | 2017-12-01 16:32 | DIAGNOSTIC IMAGING REPORT ---
TWO VIEW CHEST CLINICAL HISTORY: Cough. Chest tightness. FINDINGS: PA and lateral chest radiographs are compared to chest x-ray and chest CT dated 09/25/2017 and correlated with chest CT dated 10/05/2016. The heart is top normal for projection. There is mild atherosclerotic calcification of the thoracic area. Chronic interstitial thickening is similar to previous. There is bibasilar atelectasis. No airspace consolidation or pleural effusion is seen. There is no pneumothorax. The skeletal structures are osteopenic. Degenerative change is noted in the thoracic spine. IMPRESSION: No acute cardiopulmonary abnormality. Electronically signed by: Silvio Cowart M.D. 12/01/2017 4:31 PM Dictated Date/Time: 12/01/2017 4:30 PM
== END | disposition home or self-care (01) ==
LOC: C.RAD1850 16:20
PROVIDERS: ATTEND Physician Assistant Medical
DX: R05 Cough (principal); R07.89 Other chest pain

== ENCOUNTER 2022-11-26 08:37 | Observation (INO) ==
--- NOTE | 2022-10-12 10:50 | PAT Medication Instructions ---
Medication Instructions Date of Service October 12, 2022 Home Medications Medication Instructions Recorded ferrous sulfate 325 mg (65 mg 325 mg PO DAILY #30 tabs 04/25/19 iron) tablet ipratropium 0.5 mg-albuterol 3 mg 3 ml inhalation Q4H PRN shortness 05/05/20 (2.5 mg base)/3 mL nebulization of breath #90 mL soln omalizumab 150 mg/mL subcutaneous 300 mg (2 mL) subcut .COMPLEX #2 mL 04/08/22 syringe (Xolair) clotrimazole-betamethasone 1 1 applic topical BID #45 grams 04/16/22 %-0.05 % topical cream fluticasone 500 mcg-salmeterol 50 See Rx Instructions .Route 05/04/22 mcg/dose blistr powdr for .COMPLEX #60 blisters inhalation (Wixela Inhub) montelukast 10 mg tablet See Rx Instructions .Route 05/06/22 .COMPLEX #30 tabs hydrochlorothiazide 12.5 mg tablet 12.5 mg PO DAILY #90 tabs 05/24/22 ibuprofen 800 mg tablet See Rx Instructions .Route 07/08/22 .COMPLEX #60 tabs baclofen 20 mg tablet 20 mg PO BID #60 tabs 07/19/22 nortriptyline 50 mg capsule 50 mg PO .COMPLEX #30 caps 07/19/22 ipratropium 20 mcg-albuterol 100 See Rx Instructions .Route 09/06/22 mcg/actuation mist for inhalation .COMPLEX #4 grams (Combivent Respimat) ferrous sulfate 325 mg (65 mg iron) tablet 325 mg PO DAILY ipratropium 0.5 mg-albuterol 3 mg (2.5 mg base)/3 mL nebulization soln 3 ml inhalation Q4H PRN shortness of breath omalizumab 150 mg/mL subcutaneous syringe (Xolair) 300 mg (2 mL) subcut .COMPLEX clotrimazole-betamethasone 1 %-0.05 % topical cream 1 applic topical BID fluticasone 500 mcg-salmeterol 50 mcg/dose blistr powdr for inhalation (Wixela Inhub) See Rx Instructions .Route .COMPLEX montelukast 10 mg tablet See Rx Instructions .Route .COMPLEX hydrochlorothiazide 12.5 mg tablet 12.5 mg PO DAILY ibuprofen 800 mg tablet See Rx Instructions .Route .COMPLEX baclofen 20 mg tablet 20 mg PO BID nortriptyline 50 mg capsule 50 mg PO .COMPLEX nystatin 100,000 unit/gram topical cream 1 applic topical BID PRN Rash ipratropium 20 mcg-albuterol 100 mcg/actuation mist for inhalation (Combivent Re spimat) See Rx Instructions .Route .COMPLEX naproxen sodium 220 mg tablet (Aleve) 220 mg PO BID PRN Pain ASK your surgeon for instructions ibuprofen 800 mg tablet See Rx Instructions .Route .COMPLEX naproxen sodium 220 mg tablet (Aleve) 220 mg PO BID PRN Pain ASK your prescriber and surgeon omalizumab 150 mg/mL subcutaneous syringe (Xolair) 300 mg (2 mL) subcut .COMPLEX nortriptyline 50 mg capsule 50 mg PO .COMPLEX STOP taking 24 hours before surgery clotrimazole-betamethasone 1 %-0.05 % topical cream 1 applic topical BID nystatin 100,000 unit/gram topical cream 1 applic topical BID PRN Rash DO NOT take the morning of surgery ferrous sulfate 325 mg (65 mg iron) tablet 325 mg PO DAILY montelukast 10 mg tablet See Rx Instructions .Route .COMPLEX hydrochlorothiazide 12.5 mg tablet 12.5 mg PO DAILY baclofen 20 mg tablet 20 mg PO BID Take morning of surgery With a small sip of water, OTHERWISE NOTHING TO EAT OR DRINK AFTER MIDNIGHT: ipratropium 0.5 mg-albuterol 3 mg (2.5 mg base)/3 mL nebulization soln 3 ml inhalation Q4H PRN shortness of breath (if needed) fluticasone 500 mcg-salmeterol 50 mcg/dose blistr powdr for inhalation (Wixela Inhub) See Rx Instructions .Route .COMPLEX ipratropium 20 mcg-albuterol 100 mcg/actuation mist for inhalation (Combivent Respimat) See Rx Instructions .Route .COMPLEX Take evening before surgery ipratropium 0.5 mg-albuterol 3 mg (2.5 mg base)/3 mL nebulization soln 3 ml inhalation Q4H PRN shortness of breath (if needed) fluticasone 500 mcg-salmeterol 50 mcg/dose blistr powdr for inhalation (Wixela Inhub) See Rx Instructions .Route .COMPLEX baclofen 20 mg tablet 20 mg PO BID ipratropium 20 mcg-albuterol 100 mcg/actuation mist for inhalation (Combivent Respimat) See Rx Instructions .Route .COMPLEX Other Notes If you have any questions please call us at [phone] or [phone] or [phone] or [phone]
--- NOTE | 2022-10-18 13:26 | Anesthesiology Consultation ---
Date of Service October 18, 2022 Assessment & Plan (1) Encounter for pre-operative examination: COVID screening: Per assessment on 10/18: No known COVID-19 positive contacts or current COVID-19 related symptoms. Travel screen negative. Patient vaccinated. At surgeon discretion if preop Covid testing being done. Chart Review Chart Review: Acceptable Risk for Surgery and Patient seen in Pre Admission Testing Teaching & Discussion Pre-Anesthesia Teaching/Discussion Notes: Instructed NPO after midnight before surgery,except medications with 15 cc of water. Medication instructions provided according to the PAT guidelines. History Surgery Operation Date: 11/26/22 07:45 Proposed Procedures p L3-L4 Decompression and Fusion with Possible Coflex, Spinal Cord Monitoring - Nolan Robledo DO Height/Weight Height: 5 ft 4 in Weight: 96.3 kg Allergies Allergy/AdvReac Type Severity Reaction Status Date / Time azithromycin [From Zithromax] AdvReac Mild UPSET Verified 10/11/22 15:01 STOMACH Medications Home Medications Medication Instructions Recorded Confirmed Last Taken ferrous sulfate 325 mg (65 mg 325 mg PO DAILY #30 tabs 04/25/19 10/11/22 Unknown iron) tablet ipratropium 0.5 mg-albuterol 3 mg 3 ml inhalation Q4H PRN shortness 05/05/20 10/11/22 Unknown (2.5 mg base)/3 mL nebulization of breath #90 mL soln omalizumab 150 mg/mL subcutaneous 300 mg (2 mL) subcut .COMPLEX #2 mL 04/08/22 10/11/22 Unknown syringe (Xolair) clotrimazole-betamethasone 1 1 applic topical BID #45 grams 04/16/22 10/11/22 Unknown %-0.05 % topical cream fluticasone 500 mcg-salmeterol 50 See Rx Instructions .Route 05/04/22 10/11/22 Unknown mcg/dose blistr powdr for .COMPLEX #60 blisters inhalation (Riky Inhaugusto) montelukast 10 mg tablet See Rx Instructions .Route 05/06/22 10/11/22 Unknown .COMPLEX #30 tabs hydrochlorothiazide 12.5 mg tablet 12.5 mg PO DAILY #90 tabs 05/24/22 10/11/22 Unknown ibuprofen 800 mg tablet See Rx Instructions .Route 07/08/22 10/11/22 Unknown .COMPLEX #60 tabs baclofen 20 mg tablet 20 mg PO BID #60 tabs 07/19/22 10/11/22 Unknown nortriptyline 50 mg capsule 50 mg PO .COMPLEX #30 caps 07/19/22 10/11/22 Unknown nystatin 100,000 unit/gram topical 1 applic topical BID PRN Rash 07/29/22 Unknown cream ipratropium 20 mcg-albuterol 100 See Rx Instructions .Route 09/06/22 10/11/22 Unknown mcg/actuation mist for inhalation .COMPLEX #4 grams (Combivent Respimat) naproxen sodium 220 mg tablet 220 mg PO BID PRN Pain 10/11/22 10/11/22 Unknown ([place]) Past Medical History Medical History Allergic rhinitis Asthma Hx of menorrhagia Hypertension Low back pain Lumbar radiculopathy Obesity Exercise / Class Metabolic Activity II 4-5 Yardwork/Stairs/Walk up hill (one FS (no CP, no SOB)) Past Family History Family History Father Cirrhosis Mother Hepatitis Aunt Ovarian cancer maternal Other Diabetes Denies family history of Prostate cancer Myocardial infarction Breast cancer Colorectal cancer Stroke Past Surgical History Surgical History H/O hand surgery H/O oral surgery History of dilation and curettage History of hysteroscopy with removal of submucous leiomyomata Hx of colonoscopy Hx of tubal ligation Past Anesthesia History No Hx of Anesthesia Complications and No Family Hx of Anesthesia Complications History of PONV No Hx of PONV and No Hx of Motion Sickness Social History Smoking Status: Never smoker Do You Dip or Chew Tobacco: No Hx Alcohol Use: No Hx Substance Use: No substance use type: does not use Review of Systems Patient denies chest pain, shortness of breath, dyspnea on exertion, fever, chills, cough, wheezing, palpitations. Physical Exam Vital Signs VITALS BP 125/87 P 87 TEMP 98.3 SP02 99%RA RESP 16 PHYSICAL Full cervical extension range of motion. Full TMJ range of motion. TMD 3 finger breaths Mallampati Score 1 Dentition: missing molars Lungs: clear throughout to auscultation Cardiac: regular rate and rhythm, no murmurs noted Spine: normal Carotid arteries: negative bruit Extremities: no edema Lab Results Anesthesia Preop Results Results Anesthesia Widget: WBC 4.35 K/ul (4.8-10.8) L 10/18/22 Hgb 12.8 g/dl (12.0-16.0) 10/18/22 Hct 40.4 % (34.1-44.9) 10/18/22 Plt 311 K/uL (130-400) 10/18/22 Na 140 mmol/L (136-145) 10/18/22 K 3.6 mmol/L (3.5-5.1) 10/18/22 Cl 104 mmol/L (98-107) 10/18/22 CO2 30 mmol/L (21-32) 10/18/22 BUN 20 mg/dl (6-23) 10/18/22 Creat 0.79 mg/dl (0.6-1.2) 10/18/22 Glucose Level 74 mg/dl (70-99(Fasting)) 10/18/22 PT 10.9 Seconds (9.0-12.0) 10/18/22 PTT 26.9 Seconds (21.0-31.0) 10/18/22 INR 1.0 (0.9-1.1) 10/18/22 Urine Color Yellow 10/18/22 Urine Appearance Clear (Clear) 10/18/22 Urine pH 5.0 (4.5-7.5) 10/18/22 Urine Specific [place] 1.024 (1.000-1.030) 10/18/22 Urine Protein Negative (Negative) 10/18/22 Urine Glucose (UA) Negative (Negative) 10/18/22 Urine Ketones Negative (Negative) 10/18/22 Urine Blood Negative (Negative) 10/18/22 Urine Nitrite Negative (Negative) 10/18/22 Urine Bilirubin Negative (Negative) 10/18/22 Urine Urobilinogen Negative (Negative) 10/18/22 Urine Leukocyte Esterase Negative (Negative) 10/18/22 Blood Type B Positive 10/18/22 Antibody Screen NEGATIVE 10/18/22 Testing Electrocardiogram Date: 10/18/22 Findings: + NSR @ (81) Chest X-Ray Date: 10/18/22 FINDINGS: Lung volumes are normal. There is no consolidation to suggest pneumonia. Linear left basilar opacity represents atelectasis or scarring. There is no pneumothorax or pleural effusion. Cardiac size is normal. Mediastinal contours are normal. There is no evidence for pulmonary edema. Old left seventh rib fracture is incidentally noted. IMPRESSION: No acute cardiopulmonary findings. COVID-19 Risk Screen Screening Information COVID-19 Screen Date: 10/18/22 Exposure 21 Days Family/Household +COVID Last 21 Days: No Exposure 10 Days Any COVID Exposure Last 10 Days: No Symptoms Last 10 Days Experienced COVID Sx Last 10 Days: No + COVID 0-90 Days COVID + in Last 0-90 Days: No
[~2022-11-26 08:37] MED LIST changes: +ACETAMINOPHEN 500 MG TAB PO SCH; +CeleBREX 200 MG CAP PO SCH; +DEXAMETHASONE SOD INJ 4 MG/ML VIAL ONE; +GABAPENTIN 900 MG DOSE PO SCH; -HYDR-389 PO; -HYDR12.55 PO; +HYDROmorphone INJ 2 MG/ML SYR/VIAL ONE; -IPRA1AER2 INH; +LIDOCAINE 2% MPF LOCAL 5 ML VIAL INFIL ONE; +LR 15ML/HR IV SCH; +MIDAZOLAM HCL 1 MG/ML 2ML VIAL ONE; -MOME200A INH; +ONDANSETRON INJ 2 MG/ML 2 ML VIAL ONE; +PROPOFOL IV EMULSION 10 MG/ML 20 ML VIAL IV ONE; +ROCURONIUM BROMIDE 10 MG/ML 5 ML VIAL IV ONE; -SNG10 PO; +ceFAZolin 2000MG 2,000 MG/15 ML SYR IV SCH; +fentaNYL citrate 100 MCG/2 ML VIAL ONE
--- NOTE | 2022-11-26 09:17 | History & Physical Bridge Note ---
Date of Service November 26, 2022 History & Physical Bridge Note I have examined the patient, reviewed the History & Physical and in the interval since the performance of the History & Physical I have noted the following changes of clinical significance: no changes noted
[2022-11-26] MEDS ORDERED: PROMETHAZINE HCL 6.25 MG in SODIUM CHLORIDE 0.9% 50 ML IV PRN (09:18)
[2022-11-26] MEDS ORDERED: ONDANSETRON INJ 2 MG/ML 2 ML VIAL IV PRN ×2 (09:18→15:06)
[2022-11-26] MEDS ORDERED: ATROPINE SULFATE 0.1 MG/ML 10ML SYR IV PRN (09:18)
[2022-11-26] MEDS ORDERED: ePHEDrine sulfate 50 MG/ML AMP IV PRN (09:18)
--- NOTE | 2022-11-26 09:18 | History & Physical Report ---
Date of Service November 26, 2022 Assessment & Plan (1) Neurogenic claudication due to lumbar spinal stenosis: Plan L3-L4 decompression and fusion with possible Coflex History of Present Illness Chief Complaint: Back and bilateral leg pain Primary Care Provider: Sixto Sosa MD This is a 52-year-old female who presents with chronic persistent back and bilateral leg pain after failing course of nonoperative care she is here for surgical invention. Allergies Allergy/AdvReac Type Severity Reaction Status Date / Time azithromycin [From Zithromax] AdvReac Mild UPSET Verified 11/26/22 09:02 STOMACH Home Medications Medication Instructions Recorded Confirmed Type ferrous sulfate 325 mg (65 mg 325 mg PO DAILY #30 tabs 04/25/19 11/26/22 Rx iron) tablet ipratropium 0.5 mg-albuterol 3 mg 3 ml inhalation Q4H PRN shortness 05/05/20 11/26/22 Rx (2.5 mg base)/3 mL nebulization of breath #90 mL soln omalizumab 150 mg/mL subcutaneous 300 mg (2 mL) subcut .COMPLEX #2 mL 04/08/22 11/26/22 Rx syringe (Xolair) clotrimazole-betamethasone 1 1 applic topical BID #45 grams 04/16/22 11/26/22 Rx %-0.05 % topical cream fluticasone 500 mcg-salmeterol 50 See Rx Instructions .Route 05/04/22 11/26/22 Rx mcg/dose blistr powdr for .COMPLEX #60 blisters inhalation (Wixela Inhub) hydrochlorothiazide 12.5 mg tablet 12.5 mg PO DAILY #90 tabs 05/24/22 11/26/22 Rx nystatin 100,000 unit/gram topical 1 applic topical BID PRN Rash 07/29/22 11/26/22 History cream ipratropium 20 mcg-albuterol 100 See Rx Instructions .Route 09/06/22 11/26/22 Rx mcg/actuation mist for inhalation .COMPLEX #4 grams (Combivent Respimat) naproxen sodium 220 mg tablet 220 mg PO BID PRN Pain 10/11/22 11/26/22 History (Aleve) baclofen 20 mg tablet 20 mg PO BID #60 tabs 10/27/22 11/26/22 Rx nortriptyline 50 mg capsule 50 mg PO .COMPLEX #30 caps 10/27/22 11/15/22 Rx fluconazole 150 mg tablet 150 mg PO Q3D 2 doses #2 tabs 10/28/22 11/15/22 Rx metronidazole 500 mg tablet 500 mg PO BID #14 tabs 10/28/22 11/15/22 Rx hydrocodone 5 mg-acetaminophen 325 1 tab PO Q8H PRN pain 7 days #21 10/29/22 11/15/22 Rx mg tablet tabs naproxen 500 mg tablet 500 mg PO BID PRN pain #60 tabs 10/29/22 11/15/22 Rx montelukast 10 mg tablet See Rx Instructions .Route 11/08/22 11/15/22 Rx .COMPLEX #30 tabs ibuprofen 800 mg tablet See Rx Instructions .Route 11/15/22 11/15/22 Rx .COMPLEX #60 tabs oxycodone 5 mg tablet 5 mg PO Q6H PRN pain, severe #30 11/27/22 Rx tabs tramadol 50 mg tablet 50 mg PO Q6H PRN pain, moderate 11/27/22 Rx #30 tabs Past Med/Surg History Medical History Allergic rhinitis Asthma Dysmenorrhea Elevated platelet count Fungal skin infection H1N1 influenza Hx of menorrhagia Hypertension Localized swelling of both lower legs Low back pain Lumbar radiculopathy Obesity Shahrzad-menopause Right foot pain Right shoulder pain Serum calcium elevated Syphilis Thrombocytosis Surgical History H/O hand surgery H/O oral surgery History of dilation and curettage History of hysteroscopy with removal of submucous leiomyomata Hx of colonoscopy Hx of tubal ligation Tubal ligation status Family History Father Cirrhosis Mother Hepatitis Aunt Ovarian cancer maternal Other Diabetes Denies family history of Prostate cancer Myocardial infarction Breast cancer Colorectal cancer Stroke Social History Smoking Status: Never smoker Second Hand Exposure: No; Do You Dip or Chew Tobacco: No; Tobacco Cessation Education Requested by Patient: No Hx Alcohol Use: No Hx Substance Use: No Preferred Language: Arabic Communication Ability: Effective Visual Impairment: No Limitations Hearing Ability: Normal High Man Required: No Beliefs That Will Affect Care: None marital status: Current Living Situation: Spouse current occupational status: employed Other Information That Helps Us Care for You: No Feels Safe at Home: Yes Safety Concerns: Feels Safe At This Time Childhood Exposure to Second-Hand Smoke: Yes (grandparents) caffeine: No Dental Care, Regularly: Yes Physical Activity Frequency: Does not Exercise Seatbelt Use: always Sunscreen Use: Yes Assistive Devices: None Physical Exam Physical Exam: Patient is alert and oriented Heart regular rhythm Lungs clear Results & Data Results & Data ([facility]) Vital Signs (Past 12 Hours) Vital Signs Temp Pulse Resp BP Pulse Ox O2 Del Method 11/26/22 09:10 36.9 C 98 H 20 138/93 99 Room Air
[2022-11-26] MEDS ORDERED: BUPIVACAINE/EPINEPHRINE 0.25% 1:200,000 30 ML VIAL ONE (09:37)
[2022-11-26] MEDS ORDERED: ceFAZolin 330 MG/ML 1 GM VIAL ONE (09:38)
[2022-11-26] MEDS ORDERED: FLOSEAL HEMOSTATIC MATRIX 10ML TOP ONE (10:34)
[2022-11-26] MEDS ORDERED: NEOSTIGMINE METHYLSULFATE 1 MG/ML 10ML VIAL ONE (10:50)
[2022-11-26] MEDS ORDERED: GLYCOPYRROLATE 0.2 MG/ML VIAL ONE (10:50)
--- NOTE | 2022-11-26 10:58 | Operative Report ---
Post Operative Report Pre & Post Diagnosis Operation Date: 11/26/22 10:05 Pre-Op Diagnosis: Spinal Stenosis, chronic persistent back and bilateral leg pain Post-Op Diagnosis: Spinal Stenosis, chronic persistent back and bilateral leg pain I identified the patient and participated in the time-out.: Yes Procedure Operation Date: 11/26/22 10:05 Actual Procedures #1 lumbar decompression L3-L4 with bilateral medial facetectomies. #2 placement of Coflex 14 mm interlaminar spacer at L4-L5. Surgeon Nolan Robledo, DO [employer] Officer Eliot Vinson Estimated Blood Loss 10 Findings Consistent with Post-Op Diagnosis Specimens None Indications This is a 52-year-old female who presents above-mentioned diagnosis after failing course of nonoperative care is here for the above-mentioned procedure. Description of Procedure Patient was met with identified informed consent obtained. Patient was then taken to the operative suite underwent patient placed in a prone position on the [facility] top Alek frame. All bony promises well-padded eyes inspected to ensure no external pressure placed upon the. This point the lumbar spine was prepped and draped in normal sterile fashion. With assistance of fluoroscopy identified the L3-L4 disc space and midline incision was created overlying this region. Sharp dissection with the assistance of Bovie cautery was formed down to and exposing the interlaminar space at L3-L4. Self-retaining retractors placed. Then performed a midline decompression with bilateral medial facetectomies to address severe spinal stenosis. A 14 mm Coflex interlaminar spacer was then tamped into position and crimped into place. The incision was then copiously irrigated a 10 round ITALO drain inserted. Was then closed with 1 Vicryl the fascia 2-0 Vicryl subcutaneously and 4 Monocryl for final skin closure. Steri-Strips sterile dressings placed. Patient awakened taken to PACU stable condition. Please note Eliot Vinson was present out the entire procedure and all the patient positioning complex portions of the surgery and final skin closure. I attest to the content of the Intraoperative Record and any orders documented therein. Any exceptions are noted below.
--- NOTE | 2022-11-26 11:10 | Fluoroscopy Report ---
FL lumbar spine 2-3V CLINICAL HISTORY: L3-4 D W/POSS COFLEX COMPARISON STUDY: Lumbar spine MRI August 02, 2022. FLUOROSCOPY TIME: 5 seconds. EXPOSURE DOSE: 4.61 mGy FLUOROSCOPIC IMAGES: 2 FINDINGS: Exact numbering is difficult given partial visualization of the lumbar spine. A Coflex ray ce is in place with surgical drain. There are no unexpected radiopaque foreign bodies. IMPRESSION: Fluoroscopy provided during lumbar spine surgery with placement of a lumbar spine Coflex device. ACT 112: Negative or not required by law. Electronically signed by: Kingsley Arita M.D. 11/26/2022 11:09 AM
[2022-11-26] MEDS ORDERED: SUGAMMADEX SODIUM 200 MG/2 ML VIAL IV ONE (11:25)
[2022-11-26] MEDS: fentaNYL citrate 100 MCG/2 ML VIAL IV PRN ×4 (11:41→11:56)
[2022-11-26] MEDS ORDERED: HYDROmorphone INJ 1 MG/ML SYRINGE ONE (12:03)
[2022-11-26] MEDS: HYDROmorphone INJ 2 MG/ML SYR/VIAL IV PRN ×4 (12:04→14:00)
--- NOTE | 2022-11-26 13:32 | Anesthesiology Progress Note ---
Date of Service November 26, 2022 Anesthesia Post Procedure Vital Signs Vital Signs: Temp Pulse Pulse Resp BP Pulse Ox O2 Del Method 11/26/22 13:15 75 15 128/95 100 Nasal Cannula 11/26/22 13:00 75 16 116/93 100 Nasal Cannula 11/26/22 12:45 74 16 135/88 100 Nasal Cannula 11/26/22 12:30 60 16 135/86 100 Nasal Cannula 11/26/22 12:20 36.1 C L 73 16 118/86 96 Nasal Cannula 11/26/22 12:10 77 17 137/92 96 Room Air 11/26/22 12:00 74 17 144/87 H 96 Room Air 11/26/22 11:50 73 18 132/94 100 Oxymask 11/26/22 11:40 81 18 135/98 100 Oxymask 11/26/22 11:32 36.0 C L 92 H 18 139/90 100 Oxymask 11/26/22 09:10 36.9 C 98 H 20 138/93 99 Room Air O2 Flow Rate 11/26/22 13:15 2 11/26/22 13:00 2 11/26/22 12:45 2 11/26/22 12:30 2 11/26/22 12:20 2 11/26/22 12:10 11/26/22 12:00 11/26/22 11:50 5 11/26/22 11:40 5 11/26/22 11:32 5 11/26/22 09:10 Pain Intensity Bilateral Hip: Pain Intensity: 7 Transfer of Care Handoff Completed per policy Notes Mental Status: alert / awake / arousable and participated in evaluation Patient Amnestic to Procedure: Yes Nausea / Vomiting: adequately controlled Pain: adequately controlled Airway Patency, RR, SpO2: stable & adequate BP & HR: stable & adequate Hydration State: stable & adequate Anesthetic Complications: no major complications apparent and Pt Satisfied with anesthetic care
[2022-11-26] MEDS ORDERED: SOD PHOSPHATE/SOD BIPHOSPHATE ENEMA 132 ML BTL PR PRN (15:06)
[2022-11-26] MEDS ORDERED: bisacodyL 10 MG SUPP PR PRN (15:06)
[2022-11-26] MEDS ORDERED: traMADol HCL 50 MG TABLET PO PRN (15:06)
[2022-11-26] MEDS ORDERED: HYDROmorphone INJ 0.5 MG/0.5 ML SYR IV PRN (15:06)
[2022-11-26] MEDS ORDERED: METOCLOPRAMIDE HCL INJ 5 MG/ML 2 ML VIAL IV PRN (15:06)
[2022-11-26] MEDS ORDERED: DO NOT ADMINISTER FLU VACCINE PRN (15:06)
[2022-11-26] MEDS ORDERED: ONDANSETRON 4 MG OD TAB PO PRN (15:06)
[2022-11-26] MEDS ORDERED: hydrOXYzine HCl 25 MG TAB PO PRN (15:06)
[2022-11-26] MEDS ORDERED: ACETAMINOPHEN 500 MG TAB PO PRN (15:06)
[2022-11-26] MEDS ORDERED: MAGNESIUM HYDROXIDE SUSP 30 ML UDC PO PRN (15:06)
[2022-11-26] MEDS ORDERED: ALBUT/IPRATROP 3MG/0.5MG NEB 3 ML VIAL INH PRN (15:06)
[2022-11-26] MEDS ORDERED: FAMOTIDINE 20 MG TAB PO PRN (15:06)
[2022-11-26] MEDS ORDERED: ALUMINUM/MAGNESIUM SUSP 30 ML UDC PO PRN (15:06)
[2022-11-26] MEDS ORDERED: PROMETHAZINE HCL 12.5 MG in SODIUM CHLORIDE 0.9% 50 ML IV PRN (15:06)
[2022-11-26] MEDS ORDERED: DO NOT ADMINISTER PNEUMOCOCCAL VACCINE PRN (15:06)
[2022-11-26] MEDS ORDERED: IPRATROPIUM BROMIDE/ALBUTEROL respimat INH INH SCH (15:06)
[2022-11-26] MEDS ORDERED: ACETAMINOPHEN 1,000 MG/100 ML VIAL IV PRN (15:06)
[2022-11-26] MEDS ORDERED: diphenhydrAMINE Capsule 25 MG CAP PO PRN (15:06)
[2022-11-26] MEDS ORDERED: LORazepam 2 MG/1 ML VIAL IV PRN (15:06)
[2022-11-26] MEDS ORDERED: NALOXONE HCL 0.4 MG/1 ML VIAL/CARP IV PRN (15:06)
[2022-11-26] MEDS ORDERED: LORazepam 0.5 MG TAB PO PRN (15:06)
[2022-11-26] MEDS: LACTATED RINGER'S 1,000 ML IV SCH ×2 (15:35→21:24)
[2022-11-26] MEDS: KETOROLAC 30 MG/ML VIAL IV SCH ×2 (16:06→21:17)
[2022-11-26] MEDS: ceFAZolin 2000MG 2,000 MG/15 ML SYR IV SCH (16:16)
--- NOTE | 2022-11-26 19:30 | Hospitalist Consultation ---
Date of Consultation November 26, 2022 Assessment & Plan (1) Neurogenic claudication due to lumbar spinal stenosis: Patient is a 52 yo female with PMHx of asthma, HTN, and chronic back pain admitted to the hospital 11/26/22 for surgical intervention secondary to neurogenic claudication due to lumbar spinal stenosis with Dr. Robledo. s/p lumbar decompression for neurogenic claudication due to lumbar spinal stenosis - Pt is POD #0 - Analgesia/management per primary surgical team Hypertension - Continue home HCTZ Asthma - Breo, Atrovent, and prn albuterol while admitted - On discharge, continue home Dulera and Combivent (2) Hypertension: (3) Allergic rhinitis: (4) Severe persistent asthma: Supervising Physician Co-Signing Physician Notes Patient seen and examined, chart reviewed, case discussed with Elisabet Lugo DO and I agree with the assessment and plan as above except as otherwise noted Labs and images reviewed Ling is a 52-year-old female with a past medical history of neurogenic claudication 2/2 lumbar stenosis who presented for decompression and fusion, hypertension, past hep C exposure, asthma, chronic pain who presented At bedside stiffness and a little ache in the low back, ~6/10. Pain in her legs bilat this morning is improved, but pt notes has not gotten up and pain tends to be worse with exertion. Mild tingling in L thigh into L foot improving, R leg paresthesia. RRR. CTAB. ITALO drain in place, scant serosanguinous material. Chronic low back pain: Pain control, DVT prophylaxis, activity per surgical team. Asthma: Continue Dulera/Combivent formulary equivalent. No wheezing on exam. No acute exacerbation. Past XD exposure: Follow-up testing was negative, no treatment indicated. Hypertension: Continue hydrochlorothiazide. Normotensive postop History of Present Illness Attending Physician: Nolan Robledo DO History of Present Illness Patient is a 52 yo female with PMHx of asthma, HTN, and chronic back pain admitted to the hospital 11/26/22 for surgical intervention secondary to neurogenic claudication due to lumbar spinal stenosis with Dr. Robledo. She is POD#0 L3-4 lumbar decompression w/ placement of Coflex. Hospital team was consulted for medical management of patient's chronic medical conditions. Patient reports that her chronic medical conditions are well controlled. Asthma currently controlled w/ maintenance Dulera, Combivent, and Xolair. Hypertension well controlled with HCTZ. She has been taking baclofen and nortriptyline per neurology (Dr. Little) for the lumbar radiculopathy prior to surgery. Aside from fatigue, mild nausea, and mild post-op pain that is well controlled with analgesics/antiemetics, patient with no acute complaints or concerns. She is tolerating po intake post-op. Denies recent illness. Denies fever, chills, CP, SOB, abd pain, vomiting, diarrhea, constipation, lightheadedness, dizziness, numbness, or tingling. Allergies Allergy/AdvReac Type Severity Reaction Status Date / Time azithromycin [From Zithromax] AdvReac Mild UPSET Verified 11/26/22 09:02 STOMACH Home Medications Medication Instructions Recorded Confirmed Type ferrous sulfate 325 mg (65 mg 325 mg PO DAILY #30 tabs 04/25/19 11/26/22 Rx iron) tablet ipratropium 0.5 mg-albuterol 3 mg 3 ml inhalation Q4H PRN shortness 05/05/20 11/26/22 Rx (2.5 mg base)/3 mL nebulization of breath #90 mL soln omalizumab 150 mg/mL subcutaneous 300 mg (2 mL) subcut .COMPLEX #2 mL 04/08/22 11/26/22 Rx syringe (Xolair) clotrimazole-betamethasone 1 1 applic topical BID #45 grams 04/16/22 11/26/22 Rx %-0.05 % topical cream fluticasone 500 mcg-salmeterol 50 See Rx Instructions .Route 05/04/22 11/26/22 Rx mcg/dose blistr powdr for .COMPLEX #60 blisters inhalation (Wixela Inhub) hydrochlorothiazide 12.5 mg tablet 12.5 mg PO DAILY #90 tabs 05/24/22 11/26/22 Rx nystatin 100,000 unit/gram topical 1 applic topical BID PRN Rash 07/29/22 11/26/22 History cream ipratropium 20 mcg-albuterol 100 See Rx Instructions .Route 09/06/22 11/26/22 Rx mcg/actuation mist for inhalation .COMPLEX #4 grams (Combivent Respimat) naproxen sodium 220 mg tablet 220 mg PO BID PRN Pain 10/11/22 11/26/22 History ([place]ark) baclofen 20 mg tablet 20 mg PO BID #60 tabs 10/27/22 11/26/22 Rx nortriptyline 50 mg capsule 50 mg PO .COMPLEX #30 caps 10/27/22 11/15/22 Rx fluconazole 150 mg tablet 150 mg PO Q3D 2 doses #2 tabs 10/28/22 11/15/22 Rx metronidazole 500 mg tablet 500 mg PO BID #14 tabs 10/28/22 11/15/22 Rx hydrocodone 5 mg-acetaminophen 325 1 tab PO Q8H PRN pain 7 days #21 10/29/22 11/15/22 Rx mg tablet tabs naproxen 500 mg tablet 500 mg PO BID PRN pain #60 tabs 10/29/22 11/15/22 Rx montelukast 10 mg tablet See Rx Instructions .Route 11/08/22 11/15/22 Rx .COMPLEX #30 tabs ibuprofen 800 mg tablet See Rx Instructions .Route 11/15/22 11/15/22 Rx .COMPLEX #60 tabs Patient History Medical History Allergic rhinitis Asthma Dysmenorrhea Elevated platelet count Fungal skin infection H1N1 influenza Hx of menorrhagia Hypertension Localized swelling of both lower legs Low back pain Lumbar radiculopathy Obesity Shahrzad-menopause Right foot pain Right shoulder pain Serum calcium elevated Syphilis Thrombocytosis Surgical History H/O hand surgery H/O oral surgery History of dilation and curettage History of hysteroscopy with removal of submucous leiomyomata Hx of colonoscopy Hx of tubal ligation Tubal ligation status Family History Father Cirrhosis Mother Hepatitis Aunt Ovarian cancer maternal Other Diabetes Denies family history of Prostate cancer Myocardial infarction Breast cancer Colorectal cancer Stroke Social History Smoking Status: Never smoker Second Hand Exposure: No; Do You Dip or Chew Tobacco: No; Tobacco Cessation Education Requested by Patient: No Hx Alcohol Use: No Hx Substance Use: No Preferred Language: Tanzanian Communication Ability: Effective Visual Impairment: No Limitations Hearing Ability: Normal Inventory Specialist Required: No Beliefs That Will Affect Care: None marital status: Current Living Situation: Spouse current occupational status: employed Other Information That Helps Us Care for You: No Feels Safe at Home: Yes Safety Concerns: Feels Safe At This Time Childhood Exposure to Second-Hand Smoke: Yes (grandparents) caffeine: No Dental Care, Regularly: Yes Physical Activity Frequency: Does not Exercise Seatbelt Use: always Sunscreen Use: Yes Assistive Devices: None Review of Systems Review of Systems: See HPI Physical Exam Physical Exam: GENERAL: Resting comfortably in bed in no acute distress. Well developed and well nourished. Vital signs reviewed. EYES: Anicteric sclerae. HENT: Moist mucous membranes. RESPIRATORY: Normal respiratory effort. No conversational dyspnea. Anterior and lateral lung angeles are clear to auscultation bilaterally without wheezing, rales, or rhonchi. CARDIOVASCULAR: Regular rate and rhythm. No murmurs. ABDOMEN: Soft, non-tender and non-distended. Hypoactive bowel sounds. EXTREMITIES: SCDs in place. SKIN: Warm, dry. NEUROLOGIC: Alert and oriented. Normal speech. No focal neurological deficits. PSYCHIATRIC: Cooperative. Appropriate mood and affect. Results & Data Results & Data ([facility]) Vital Signs (Past 12 Hours) Vital Signs Temp Pulse Pulse Resp BP Pulse Ox O2 Del Method 11/26/22 14:55 Nasal Cannula 11/26/22 16:40 36.8 C 79 18 131/86 100 Room Air 11/26/22 15:33 37 C 74 14 119/77 100 Nasal Cannula 11/26/22 14:55 36.4 C L 81 14 137/94 100 Nasal Cannula 11/26/22 14:15 36.2 C L 77 14 121/93 99 Nasal Cannula 11/26/22 13:45 72 13 123/93 99 Nasal Cannula 11/26/22 13:15 75 15 128/95 100 Nasal Cannula 11/26/22 13:00 75 16 116/93 100 Nasal Cannula 11/26/22 12:45 74 16 135/88 100 Nasal Cannula 11/26/22 12:30 60 16 135/86 100 Nasal Cannula 11/26/22 12:20 36.1 C L 73 16 118/86 96 Nasal Cannula 11/26/22 12:10 77 17 137/92 96 Room Air 11/26/22 12:00 74 17 144/87 H 96 Room Air 11/26/22 11:50 73 18 132/94 100 Oxymask 11/26/22 11:40 81 18 135/98 100 Oxymask 11/26/22 11:32 36.0 C L 92 H 18 139/90 100 Oxymask 11/26/22 09:10 36.9 C 98 H 20 138/93 99 Room Air O2 Flow Rate 11/26/22 14:55 2 11/26/22 16:40 11/26/22 15:33 2 11/26/22 14:55 2 11/26/22 14:15 2 11/26/22 13:45 2 11/26/22 13:15 2 11/26/22 13:00 2 11/26/22 12:45 2 11/26/22 12:30 2 11/26/22 12:20 2 11/26/22 12:10 11/26/22 12:00 11/26/22 11:50 5 11/26/22 11:40 5 11/26/22 11:32 5 11/26/22 09:10 Laboratory Results 11/26/22 Range/Units 08:55 SARS-CoV-2, RNA, NAAT NEGATIVE (NEGATIVE)
[2022-11-26] MEDS ORDERED: DOCUSATE SODIUM/SENNA 50/8.6MG TAB PO SCH (21:00)
[2022-11-26] MEDS: BACLOFEN 20 MG TAB PO SCH (21:16)
[2022-11-26] MEDS: oxyCODONE HCL IR 5 MG TAB (IMMEDIATE RELEASE) PO PRN (21:18)
[2022-11-26] MEDS: Ipratropium HFA Inhaler (Combivent Respimat P&T Subs) INH SCH ×2 (21:35→23:09)
[2022-11-26] MEDS: Albuterol HFA 8 GM Inhaler (Combivent Respimat P&T Subs) INH SCH ×2 (21:35→23:09)
[2022-11-27] MEDS: ceFAZolin 2000MG 2,000 MG/15 ML SYR IV SCH (01:28)
[2022-11-27] MEDS: KETOROLAC 30 MG/ML VIAL IV SCH ×2 (03:50→09:14)
[2022-11-27] MEDS: oxyCODONE HCL IR 5 MG TAB (IMMEDIATE RELEASE) PO PRN ×2 (03:55→09:12)
[2022-11-27] MEDS: POLYETHYLENE (MIRALAX) 17 GM PACK PO SCH ×2 (06:22→12:42)
[2022-11-27] MEDS: Albuterol HFA 8 GM Inhaler (Combivent Respimat P&T Subs) INH SCH ×2 (07:14→11:21)
[2022-11-27] MEDS: Ipratropium HFA Inhaler (Combivent Respimat P&T Subs) INH SCH ×2 (07:15→11:22)
--- NOTE | 2022-11-27 08:14 | Discharge Summary ---
Date of Service November 27, 2022 Admission HPI Per Admitting Provider This is a 52-year-old female who presents with chronic persistent back and bilateral leg pain after failing course of nonoperative care she is here for surgical invention. Principal Diagnosis Lumbar spinal stenosis with neurogenic claudication Discharge Data Allergies Allergy/AdvReac Type Severity Reaction Status Date / Time azithromycin [From Zithromax] AdvReac Mild UPSET Verified 11/26/22 09:02 STOMACH Consultations 11/26/22 15:06 Consult Hospitalist Routine Procedures Performed Operation Date: 11/26/22 10:05 Actual Procedures p L3-L4 Decompression, Coflex(Not Applicable) - Nolan Robledo DO Ordered Studies 11/26/22 10:05 [place] lumbar spine 2-3V Routine Hospital Course (1) Neurogenic claudication due to lumbar spinal stenosis: Patient underwent lumbar decompression, placement of Coflex at L3-L4. She tolerated procedure well. Postop day 1 she was up and ambulating pain well controlled flexion strength testing. ITALO drain decreasing appropriately. Subsequent discharge home. Discharge orders and instructions found in chart for further review. Total Time Total Time Spent Total Time Spent (In Minutes): 20 minutes Discharge Plan Discharge Items Patient Disposition: Home - Self-Care Reason For Visit: Spinal Stenosis, [place] Region with Neurogenic Discharge Diagnosis: Lumbar spinal stenosis with neurogenic claudication Activity: As commented below Non-emergency contact: Primary Care Provider Call non-emergency contact if: you have any medication questions Follow-up/Referrals: Sixto Sosa MD [Primary Care Provider] - Diet: Regular Addtl Attending Provider Instructions: ACTIVITY RECOMMENDATIONS: SELF CARE INSTRUCTIONS AFTER A LAMINECTOMY 1. No prolonged sitting (less than 30 minutes for the first 3 weeks after surgery). 2. No bending, lifting more than 5 pounds, or twisting (roll like a log when turning in bed). 3. You may shower 3 days after surgery if no drainage from wound. Thoroughly dry wound. Do not soak in the tub. 4. Please walk as much as you can for exercise. Gradually increase the distance that you walk as your endurance increases. 5. You may drive in 7-10 days if you are comfortable and no longer requiring pain medications. SPECIAL CARE INSTRUCTIONS: VERY IMPORTANT TO READ AND REVIEW A. Your surgical incision has been closed with a cosmetic suture under the skin that will dissolve in about 6 weeks. In 14 days, you can use a pair of clean scissors and cut the suture that is left outside of the skin at the ends of your incision. B. Complications are uncommon, but please contact us if you have any signs or symptoms of: 1. wound infection (fever higher than 102.5 degrees F, redness, separation of wound, drainage, or increasing pain from the incision) 2. blood clots in legs (pain, swelling, redness and warmth in legs) 3. urinary tract infection (fever higher than 102.5 degrees, burning upon urination or increased frequency of urination) 4. nerve problems (inability to walk on your toes or heels, numbness, loss of bowel or bladder control) 5. any other symptoms that concern you. C. Please call the office at if you have any concerns or questions about your operation or recovery. MANAGING PAIN AFTER SPINAL SURGERY 1. Narcotic medication is intended for short-term use and will be provided for surgical pain. Surgical pain usually lasts for a period of 4-6 weeks. Narcotic medication includes Percocet, Vicodin, Darvocet, Tylenol #3 or Lortab. 2. Longer-term pain is more appropriately treated with non-narcotic medication such as Tylenol ES. 3. Muscle spasm is not appropriately treated with narcotics. Muscle relaxers such as Soma, Flexeril or Skelaxin can be used along with Tylenol ES. 4. Remember that we all live with some "aches and pains". This is not unusual or uncommon after an injury or as we get older. 5. We will provide appropriate medication within the normal guidelines of their prescribed use. We will also be very cautious and aware of potential abuse and extended duration of patients' medication needs. 6. Please allow 2-3 days to process refills. Prescriptions will not be mailed but must be picked up at the office. FOLLOW UP VISIT: Keep your scheduled follow-up appointment. Any questions, please call the office at . Pending Studies at Discharge: No Stand-Alone Forms: My Rapid [facility], Smoking Cessation Medications and DC Order Prescriptions: New oxycodone 5 mg tablet 5 mg PO Q6H PRN (Reason: pain, severe) Qty: 30 0RF tramadol 50 mg tablet 50 mg PO Q6H PRN (Reason: pain, moderate) Qty: 30 0RF Continued clotrimazole-betamethasone 1-0.05 % cream 1 applic TOP BID Qty: 45 1RF fluticasone propion-salmeterol [Wixela Inhub] 500-50 mcg/dose blister with device See Rx Instructions .ROUTE .COMPLEX Qty: 60 11RF Dose Instruction: inhale 1 dose by mouth twice a day Rx Instructions: inhale 1 dose by mouth twice a day hydrochlorothiazide 12.5 mg tablet 12.5 mg PO DAILY Qty: 90 3RF Combivent Respimat 20-100 mcg/actuation mist See Rx Instructions .ROUTE .COMPLEX Qty: 4 11RF Dose Instruction: inhale 1 puff by mouth and INTO THE LUNGS four times a day Rx Instructions: inhale 1 puff by mouth and INTO THE LUNGS four times a day montelukast 10 mg tablet See Rx Instructions .ROUTE .COMPLEX Qty: 30 11RF Dose Instruction: take 1 tablet by mouth once daily Rx Instructions: take 1 tablet by mouth once daily ibuprofen 800 mg tablet See Rx Instructions .ROUTE .COMPLEX Qty: 60 5RF Dose Instruction: take 1 tablet by mouth three times a day if needed for pain Rx Instructions: take 1 tablet by mouth three times a day if needed for pain ipratropium-albuterol 0.5 mg-3 mg(2.5 mg base)/3 mL solution for nebulization 3 ml inhalation Q4H PRN (Reason: shortness of breath) Qty: 90 0RF naproxen 500 mg tablet 500 mg PO BID PRN (Reason: pain) Qty: 60 0RF hydrocodone-acetaminophen 5-325 mg tablet 1 tab PO Q8H PRN (Reason: pain) 7 Days Qty: 21 0RF baclofen 20 mg tablet 20 mg PO BID Qty: 60 5RF nortriptyline 50 mg capsule 50 mg PO .COMPLEX Qty: 30 5RF Rx Instructions: 50 mg orally 1-2 hours before bedtime; Xolair 150 mg/mL syringe 300 mg subcut .COMPLEX Qty: 2 11RF Rx Instructions: INJECT 300 mg subcutaneously EVERY 4 WEEKS APPROVED GOOD 04/07/22-04/07/23 [id number] ferrous sulfate 325 mg (65 mg iron) tablet 325 mg PO DAILY Qty: 30 0RF fluconazole 150 mg tablet 150 mg PO Q3D Qty: 2 4RF metronidazole 500 mg tablet 500 mg PO BID Qty: 14 4RF nystatin 100,000 unit/gram cream 1 applic topical BID PRN (Reason: Rash) naproxen sodium [Aleve] 220 mg Tablet 220 mg PO BID PRN (Reason: Pain) Discharge Orders: Discharge Order (Routine); Ordered 11/27/22 Ordered By: Nolan Robledo Admission Data Admit Date/Time: 11/26/22 11:04 Attending Provider: Nolan Robledo Admit Provider: Nolan Robledo Primary Care Provider: Sixto Sosa V. Other Providers: Sunny Crowe ; Shanti Moraes
[2022-11-27] MEDS ORDERED: FERROUS SULFATE 325 MG TAB PO SCH (09:00)
[2022-11-27] MEDS ORDERED: hydroCHLOROthiazide 25 MG TAB PO SCH (09:00)
[2022-11-27] MEDS ORDERED: FLUTICASONE/VILANTEROL 200/25MCG 14 PUFFS/INHALER INH SCH (09:00)
[2022-11-27] MEDS: BACLOFEN 20 MG TAB PO SCH (09:13)
== END 2022-11-27 14:01 | disposition home or self-care (01) ==
LOC: PACUINP 08:37 → ASU 08:37 → 3E 14:57

== ENCOUNTER 2024-09-05 06:24 | Observation (INO) ==
--- NOTE | 2024-08-22 12:15 | PAT Medication Instructions ---
Medication Instructions Date of Service August 22, 2024 Home Medications Medication Instructions Recorded ipratropium 0.5 mg-albuterol 3 mg 3 ml inhalation Q4H PRN shortness 08/24/23 (2.5 mg base)/3 mL nebulization of breath #90 mL soln hydrochlorothiazide 12.5 mg tablet 12.5 mg PO DAILY #90 tabs 03/20/24 baclofen 20 mg tablet 20 mg PO TID 90 days #270 tabs 05/10/24 celecoxib 200 mg capsule 200 mg PO BID 90 days #180 caps 05/10/24 cyclobenzaprine 10 mg tablet 10 mg PO HS PRN muscle spasm 90 05/10/24 days #90 tabs montelukast 10 mg tablet 10 mg PO DAILY #90 tabs 05/10/24 nystatin 100,000 unit/gram topical 1 applic topical BID PRN Rash #30 05/10/24 cream grams clotrimazole-betamethasone 1 1 applic topical BID #45 grams 05/11/24 %-0.05 % topical cream omalizumab 150 mg/mL subcutaneous 300 mg (2 mL) subcut .COMPLEX #2 mL 06/28/24 syringe (Xolair) ipratropium 0.5 mg-albuterol 3 mg (2.5 mg base)/3 mL nebulization soln 3 ml inhalation Q4H PRN shortness of breath turmeric root extract 500 mg tablet 1,000 mg PO DAILY hydrochlorothiazide 12.5 mg tablet 12.5 mg PO DAILY baclofen 20 mg tablet 20 mg PO TID celecoxib 200 mg capsule 200 mg PO BID cyclobenzaprine 10 mg tablet 10 mg PO HS PRN muscle spasm montelukast 10 mg tablet 10 mg PO DAILY nystatin 100,000 unit/gram topical cream 1 applic topical BID PRN Rash clotrimazole-betamethasone 1 %-0.05 % topical cream 1 applic topical BID multivitamin 1 tab PO DAILY omalizumab 150 mg/mL subcutaneous syringe (Xolair) 300 mg (2 mL) subcut .COMPLEX fluticasone 500 mcg-salmeterol 50 mcg/dose blistr powdr for inhalation (Advair Diskus) 1 inh inhalation BID ipratropium 20 mcg-albuterol 100 mcg/actuation mist for inhalation (Combivent Respimat) 1 puff inhalation BID Continue as directed montelukast 10 mg tablet 10 mg PO DAILY ASK your surgeon for instructions celecoxib 200 mg capsule 200 mg PO BID ASK your prescriber and surgeon omalizumab 150 mg/mL subcutaneous syringe (Xolair) 300 mg (2 mL) subcut .COMPLEX STOP taking 2 weeks before surgery (or as soon as possible) turmeric root extract 500 mg tablet 1,000 mg PO DAILY STOP taking 24 hours before surgery nystatin 100,000 unit/gram topical cream 1 applic topical BID PRN Rash clotrimazole-betamethasone 1 %-0.05 % topical cream 1 applic topical BID DO NOT take the morning of surgery hydrochlorothiazide 12.5 mg tablet 12.5 mg PO DAILY multivitamin 1 tab PO DAILY Take morning of surgery With a small sip of water, OTHERWISE NOTHING TO EAT OR DRINK AFTER MIDNIGHT: ipratropium 0.5 mg-albuterol 3 mg (2.5 mg base)/3 mL nebulization soln 3 ml inhalation Q4H PRN shortness of breath (if needed) baclofen 20 mg tablet 20 mg PO TID fluticasone 500 mcg-salmeterol 50 mcg/dose blistr powdr for inhalation (Advair Diskus) 1 inh inhalation BID ipratropium 20 mcg-albuterol 100 mcg/actuation mist for inhalation (Combivent Respimat) 1 puff inhalation BID Take evening before surgery ipratropium 0.5 mg-albuterol 3 mg (2.5 mg base)/3 mL nebulization soln 3 ml inhalation Q4H PRN shortness of breath (if needed) baclofen 20 mg tablet 20 mg PO TID cyclobenzaprine 10 mg tablet 10 mg PO HS PRN muscle spasm (if needed) fluticasone 500 mcg-salmeterol 50 mcg/dose blistr powdr for inhalation (Advair Diskus) 1 inh inhalation BID ipratropium 20 mcg-albuterol 100 mcg/actuation mist for inhalation (Combivent Respimat) 1 puff inhalation BID Other Notes If you have any questions please call us at [phone] or [phone] or [phone] or [phone]
--- NOTE | 2024-08-28 10:53 | Anesthesiology Consultation ---
Date of Service August 28, 2024 Assessment & Plan (1) Encounter for pre-operative examination: - awaiting surgeon ordered medical clearance [place] PCP 08/30/24. Chart Review Chart Review: Pending: Refer to Additional Notes / Consult section and Patient seen in Pre Admission Testing Teaching & Discussion Pre-Anesthesia Teaching/Discussion Notes: Instructed NPO after midnight before surgery, except medications with 15 cc of water. Medication instructions provided according to the PAT guidelines. History Surgery Operation Date: 09/05/24 12:55 Proposed Procedures p C4-C7 Anterior Cervical Discectomy and Fusion, with Spinal Cord Monitoring - Nolan Robledo DO Height/Weight Height: 5 ft 4 in Weight: 97.5 kg Allergies Allergy/AdvReac Type Severity Reaction Status Date / Time No Known Allergies Allergy Unverified 08/21/24 10:55 Medications Home Medications Medication Instructions Recorded Confirmed Last Taken ipratropium 0.5 mg-albuterol 3 mg 3 ml inhalation Q4H PRN shortness 08/24/23 08/21/24 Unknown (2.5 mg base)/3 mL nebulization of breath #90 mL soln turmeric root extract 500 mg tablet 1,000 mg PO DAILY 11/07/23 08/21/24 Unknown hydrochlorothiazide 12.5 mg tablet 12.5 mg PO DAILY #90 tabs 03/20/24 08/21/24 Unknown baclofen 20 mg tablet 20 mg PO TID 90 days #270 tabs 05/10/24 08/21/24 Unknown celecoxib 200 mg capsule 200 mg PO BID 90 days #180 caps 05/10/24 08/21/24 Unknown cyclobenzaprine 10 mg tablet 10 mg PO HS PRN muscle spasm 90 05/10/24 08/21/24 Unknown days #90 tabs montelukast 10 mg tablet 10 mg PO DAILY #90 tabs 05/10/24 08/21/24 Unknown nystatin 100,000 unit/gram topical 1 applic topical BID PRN Rash #30 05/10/24 08/21/24 Unknown cream grams clotrimazole-betamethasone 1 1 applic topical BID #45 grams 05/11/24 08/21/24 Unknown %-0.05 % topical cream multivitamin 1 tab PO DAILY 06/14/24 08/21/24 Unknown omalizumab 150 mg/mL subcutaneous 300 mg (2 mL) subcut .COMPLEX #2 mL 10/03/24 11/26/24 Unknown syringe (Xolair) fluticasone 500 mcg-salmeterol 50 1 inh inhalation BID 08/21/24 08/21/24 Unknown mcg/dose blistr powdr for inhalation (Advair Diskus) ipratropium 20 mcg-albuterol 100 1 puff inhalation BID 08/21/24 08/21/24 Unknown mcg/actuation mist for inhalation (Combivent Respimat) Past Medical History Medical History (Updated 08/28/24 @ 14:08 by Kelley Dobson PA-C) Abnormal serum protein electrophoresis PCP monitoring Adenomyosis Allergic rhinitis Asthma severe; significant improvement since starting Xolair; uses rescue inhaler on occasion Cervical pain Cervical radiculopathy COVID-19 (~2022) no hospitalization; symptoms resolved Hypertension controlled, stable per pt Obesity Right shoulder pain seeing PT Thrombocytosis chronic Patient denies h/o stroke, seizures, heart attack, heart failure, DM, blood clots/DVTs or blood transfusions. Exercise / Class Metabolic Activity II 4-5 Yardwork/Stairs/Walk up hill (denies chest discomfort or shortness of breath with one flight of stairs) Past Family History Family History Father Cirrhosis Mother Hepatitis Aunt Ovarian cancer maternal Other Diabetes Denies family history of Prostate cancer Myocardial infarction Breast cancer Colorectal cancer Stroke Past Surgical History Surgical History (Updated 08/28/24 @ 11:04 by Kelley Dobson PA-C) H/O cervical spine surgery H/O oral surgery History of dilation and curettage History of hysteroscopy with removal of submucous leiomyomata History of surgery left hand pinky Hx of colonoscopy Hx of tubal ligation Status post lumbar spine surgery for decompression of spinal cord L3-L4 decompression 11/26/22: GA: MAC#3, ETT#7.5, Gr View 1, atraumatic DL x 1 Past Anesthesia History No Hx of Anesthesia Complications and No Family Hx of Anesthesia Complications History of PONV No Hx of PONV and No Hx of Motion Sickness Social History Smoking Status: Never smoker Do You Dip or Chew Tobacco: No Hx Alcohol Use: No Hx Substance Use: No substance use type: does not use Review of Systems Snoring, denies witnessed apneas. Patient denies chest pain, shortness of breath, dyspnea on exertion, reflux, fever, chills, cough, wheezing, or palpitations. Physical Exam Vital Signs Vitals BP 127/84 P 73 TEMP 98.3 SP02 95% on RA RESP 19 Physical Patient resting comfortably in chair in no acute distress, alert and oriented, responding appropriately throughout visit Full cervical extension range of motion without pain TMD 3.5 finger breadths Mallampati Score 3 Dentition: intact, denies chipped or loose teeth, caps/crowns, implants or bridges Lungs: normal respiratory effort. Good air movement, clear throughout to auscultation, no adventitious breath sounds Cardiac: regular rate and rhythm, no murmurs noted Carotid arteries: negative bruit bilat Lab Results Anesthesia Preop Results Results Anesthesia Widget: WBC 5.01 K/ul (4.8-10.8) 08/10/24 Hgb 13.1 g/dl (12.0-16.0) 08/10/24 Hct 41.5 % (37.0-47.0) 08/10/24 Plt 404 K/uL (130-400) H 08/10/24 Na 140 mmol/L (136-145) 08/10/24 K 3.6 mmol/L (3.5-5.1) 08/10/24 Cl 103 mmol/L (98-107) 08/10/24 CO2 31 mmol/L (21-32) 08/10/24 BUN 17 mg/dl (6-23) 08/10/24 Creat 0.81 mg/dl (0.6-1.2) 08/10/24 Glucose Level 65 mg/dl (70-99(Fasting)) L 08/10/24 PT 10.4 Seconds (9.0-12.0) 08/28/24 PTT 24 Seconds (21-31) 08/28/24 INR 1.0 (0.9-1.1) 08/28/24 TSH 3.001 uIu/ml (0.300-4.500) 08/10/24 Free T4 0.94 ng/dl (0.61-1.60) 08/10/24 Urine Color Yellow 08/28/24 Urine Appearance Cloudy (Clear) A 08/28/24 Urine pH 5.5 (4.5-7.5) 08/28/24 Urine Specific [place] 1.019 (1.000-1.030) 08/28/24 Urine Protein Negative (Negative) 08/28/24 Urine Glucose (UA) Negative (Negative) 08/28/24 Urine Ketones Negative (Negative) 08/28/24 Urine Blood Negative (Negative) 08/28/24 Urine Nitrite Negative (Negative) 08/28/24 Urine Bilirubin Negative (Negative) 08/28/24 Urine Urobilinogen Negative (Negative) 08/28/24 Urine Leukocyte Esterase Negative (Negative) 08/28/24 Urine WBC (Auto) 0-5 /hpf (0-5) 08/28/24 Urine RBC (Auto) >20 /hpf (0-2) H 08/28/24 Urine Hyaline Casts (Auto) 0-2 /lpf (0-2) 08/28/24 Urine Epithelial Cells (Auto) 0-2 /hpf (0-2) 08/28/24 Urine Bacteria (Auto) None Seen (None Seen) 08/28/24 Blood Type B Positive 08/28/24 Antibody Screen NEGATIVE 08/28/24 Testing Electrocardiogram Date: 08/28/24 NSR, rate [address] abnormality Chest X-Ray Date: 08/28/24 No plain film evidence of an acute cardiopulmonary process.
[2024-09-05] MEDS ORDERED: PROMETHAZINE HCL 6.25 MG in SODIUM CHLORIDE 0.9% 50 ML IV PRN (07:04)
[2024-09-05] MEDS ORDERED: ATROPINE SULFATE 0.1 MG/ML 10ML SYR IV PRN (07:04)
[2024-09-05] MEDS ORDERED: DROPERIDOL 5 MG/2 ML VIAL IV PRN (07:04)
[2024-09-05] MEDS ORDERED: ePHEDrine sulfate 50 MG/ML AMP IV PRN (07:04)
[2024-09-05] MEDS ORDERED: PROPOFOL IV EMULSION 10 MG/ML 20 ML VIAL IV ONE ×2 (07:06→07:07)
[2024-09-05] MEDS ORDERED: ONDANSETRON INJ 2 MG/ML 2 ML VIAL ONE (07:06)
[2024-09-05] MEDS ORDERED: LIDOCAINE 2% 2 ML VIAL/AMP(20MG/ML) INFIL ONE (07:06)
[2024-09-05] MEDS ORDERED: GLYCOPYRROLATE 0.2 MG/ML VIAL ONE (07:06)
[2024-09-05] MEDS ORDERED: fentaNYL citrate PF 100 MCG/2 ML VIAL ONE ×2 (07:06→08:41)
[2024-09-05] MEDS ORDERED: ROCURONIUM BROMIDE 10 MG/ML 5 ML VIAL IV ONE ×5 (07:06→08:19)
[2024-09-05] MEDS ORDERED: MIDAZOLAM HCL 1 MG/ML 2ML VIAL ONE (07:06)
[2024-09-05] MEDS ORDERED: DEXAMETHASONE SOD INJ 4 MG/ML VIAL ONE (07:06)
[2024-09-05] MEDS: LR 60ML/HR IV SCH (07:11)
[2024-09-05] MEDS: ACETAMINOPHEN 500 MG TAB PO SCH (07:11)
[2024-09-05] MEDS: GABAPENTIN 600 MG DOSE PO SCH (07:11)
[2024-09-05] MEDS: CeleBREX 200 MG CAP PO SCH (07:12)
[2024-09-05] MEDS: SODIUM CHLORIDE 0.9% 1,000 ML IV SCH (07:28)
--- NOTE | 2024-09-05 07:41 | History & Physical Bridge Note ---
Date of Service September 05, 2024 History & Physical Bridge Note I have examined the patient, reviewed the History & Physical and in the interval since the performance of the History & Physical I have noted the following changes of clinical significance: no changes noted
--- NOTE | 2024-09-05 07:42 | History & Physical Report ---
Date of Service September 05, 2024 Assessment & Plan (1) Neuroforaminal stenosis of cervical spine: Plan: Anterior cervical discectomy and fusion C4-C7 History of Present Illness Chief Complaint: Neck and arm pain Primary Care Provider: Sixto Sosa MD This is a 54-year-old female who presents with chronic persistent neck and arm pain a failed course of nonoperative care is here for surgical invention. Allergies Allergy/AdvReac Type Severity Reaction Status Date / Time No Known Allergies Allergy Verified 09/05/24 06:49 Home Medications Medication Instructions Recorded Confirmed Type ipratropium 0.5 mg-albuterol 3 mg 3 ml inhalation Q4H PRN shortness 08/24/23 09/05/24 Rx (2.5 mg base)/3 mL nebulization of breath #90 mL soln turmeric root extract 500 mg tablet 1,000 mg PO DAILY 11/07/23 09/05/24 History hydrochlorothiazide 12.5 mg tablet 12.5 mg PO DAILY #90 tabs 03/20/24 09/05/24 Rx baclofen 20 mg tablet 20 mg PO TID 90 days #270 tabs 05/10/24 09/05/24 Rx celecoxib 200 mg capsule 200 mg PO BID 90 days #180 caps 05/10/24 09/05/24 Rx cyclobenzaprine 10 mg tablet 10 mg PO HS PRN muscle spasm 90 05/10/24 09/05/24 Rx days #90 tabs montelukast 10 mg tablet 10 mg PO DAILY #90 tabs 05/10/24 09/05/24 Rx nystatin 100,000 unit/gram topical 1 applic topical BID PRN Rash #30 05/10/24 09/05/24 Rx cream grams clotrimazole-betamethasone 1 1 applic topical BID #45 grams 05/11/24 09/05/24 Rx %-0.05 % topical cream multivitamin 1 tab PO DAILY 06/14/24 09/05/24 History omalizumab 150 mg/mL subcutaneous 300 mg (2 mL) subcut .COMPLEX #2 mL 06/28/24 09/05/24 Rx syringe (Xolair) fluticasone 500 mcg-salmeterol 50 1 inh inhalation BID 08/21/24 09/05/24 History mcg/dose blistr powdr for inhalation (Advair Diskus) ipratropium 20 mcg-albuterol 100 1 puff inhalation BID 08/21/24 09/05/24 History mcg/actuation mist for inhalation (Combivent Respimat) cholecalciferol (vitamin D3) 125 125 mcg PO DAILY 09/05/24 09/05/24 History mcg (5,000 unit) tablet (Vitamin D3) multivitamin 1 tab PO DAILY 09/05/24 09/05/24 History Past Med/Surg History Problem List Encounter for pre-operative examination Neuroforaminal stenosis of cervical spine Cervical radiculopathy due to degenerative joint disease of spine Cervical radiculopathy Carpal tunnel syndrome, right PMB (postmenopausal bleeding) Obesity (Acute) Severe persistent asthma Chronic allergic conjunctivitis (Acute) Elevated serum globulin level Lumbar spinal stenosis Hypertension (Acute) Allergic rhinitis Medical History Allergic rhinitis Cervical radiculopathy Cervical pain Abnormal serum protein electrophoresis PCP monitoring Hypertension controlled, stable per pt COVID-19 (~2022) no hospitalization; symptoms resolved Obesity Asthma severe; significant improvement since starting Xolair; uses rescue inhaler on occasion Thrombocytosis chronic Adenomyosis Right shoulder pain seeing PT Surgical History History of surgery Status post lumbar spine surgery for decompression of spinal cord H/O cervical spine surgery Hx of tubal ligation Hx of colonoscopy H/O oral surgery History of hysteroscopy History of dilation and curettage Family History Father Cirrhosis Mother Hepatitis Aunt Ovarian cancer maternal Other Diabetes Denies family history of Prostate cancer Myocardial infarction Breast cancer Colorectal cancer Stroke Social History Smoking Status: Never smoker Second Hand Exposure: No; Do You Dip or Chew Tobacco: No; Tobacco Cessation Education Requested by Patient: No Hx Alcohol Use: No Hx Substance Use: No Preferred Language: Lithuanian Communication Ability: Effective Visual Impairment: No Limitations Hearing Ability: Normal Educational Program Director Required: No Beliefs That Will Affect Care: None marital status: Current Living Situation: Spouse current occupational status: employed Other Information That Helps Us Care for You: No Feels Safe at Home: Yes Safety Concerns: Feels Safe At This Time Childhood Exposure to Second-Hand Smoke: Yes (grandparents) caffeine: No Dental Care, Regularly: Yes Physical Activity Frequency: Does not Exercise Seatbelt Use: always Sunscreen Use: Yes Assistive Devices: Glasses Assistive Devices Comment: wears R wrist splint at night; reading glasses Physical Exam Physical Exam: Patient is alert and oriented heart regular rhythm Lungs clear Results & Data Results & Data Vital Signs (Past 12 Hours) Vital Signs Temp Pulse Resp BP Pulse Ox O2 Del Method 09/05/24 06:46 36.9 C 78 20 134/89 97 Room Air
[2024-09-05] MEDS: ceFAZolin 2000MG 2,000 MG/15 ML SYR IV SCH ×2 (07:49→16:10)
[2024-09-05] MEDS ORDERED: diphenhydrAMINE 50 MG/ML VIAL ONE (08:38)
[2024-09-05] MEDS: FLOSEAL HEMOSTATIC MATRIX 10ML TOP ONE (09:27)
[2024-09-05] MEDS ORDERED: SUGAMMADEX SODIUM 200 MG/2 ML VIAL IV ONE ×2 (09:29→09:50)
--- NOTE | 2024-09-05 09:37 | Operative Report ---
Post Operative Report Pre & Post Diagnosis Operation Date: 09/05/24 07:45 Pre-Op Diagnosis: Cervical Radiculopathy, Spinal Stenosis of Cervical Spine Post-Op Diagnosis: Cervical Radiculopathy, Spinal Stenosis of Cervical Spine I identified the patient and participated in the time-out.: Yes Procedure Operation Date: 09/05/24 07:45 Actual Procedures #1 anterior cervical discectomy with bilateral foraminotomies C4-C5, C5-C6, and C6-C7. #2 anterior cervical arthrodesis C4-C5, C5-C6 and C6-C7. #3 placement of Spira 7 mm cage at C4-C5, 7 mm cage at C5-C6 and 8 mm cage at C6-C7. All cages were filled with os design bone graft. #4 placement of Z plate and screws from C4-C7. Surgeon Nolan Robledo, DO Esthetic Dermatologist Mignon Degroot Estimated Blood Loss 10 Findings Consistent with Post-Op Diagnosis Specimens None Indications This is a 54-year-old female presents publish diagnosis after failing course of nonoperative care is here for surgical invention. Description of Procedure Patient was met with identified informed consent obtained. Patient was then taken to the operative suite underwent intubation placed in a supine position the [place] table head Doty head ordered. All bony promises well-padded eyes inspected to ensure no external pressure placed upon the. This point anterior cervical spine was prepped and draped in normal sterile fashion. The assistance of fluoroscopy than 5 to see 5 C6 disc base and a transverse incision was placed along the right anterior aspect of the cervical spine overlying his region. Blunt dissection with assistance of bipolar electrocautery performed down to and exposing C4-C7. Self-retaining retractor was then placed. A comple te discectomy of C4-C5 was then performed up to the uncovertebral notch bilaterally. [place] distracting pins utilized to assist in visualization. I removed all posterior and their fibers and longitudinal ligament bilateral foraminotomies performed. Endplates burred to subcortical bleeding bone and 7 mm Spira cage filled with os design bone graft tapped into position. Then proceeded to C5-C6. Again complete discectomy performed up to the uncovertebral notch bilaterally. [place] distracting pins again utilized. I removed all posterior annular fibers longitudinal ligament bilateral foraminotomies performed. Endplates burred to subcortical bleeding bone and a 7 mm spiral cage filled with os designed tapped in position. Lastly proceeded to C6-C7. Again complete discectomy performed out to the uncovertebral notch bilaterally. [place] distraction pins again utilized. Removed all posterior annular fibers longitudinal ligament bilateral foraminotomies performed. Endplates burred to s ubcortical bleeding bone. An 8 mm spiral cage filled with os design then tapped in position. Distracting apparatus was removed. All anterior osteophytes burred to smooth cortical surface. Z plate and screws was then applied with the assistance of fluoroscopy. The incision was then suman irrigated explored to ensure no damage to surrounding structures remaining bleeding bleeding. 10 round ITALO drain inserted. The incision then closed with 2 Vicryl and fascia 4 Monocryl for final skin closure. Steri-Strips sterile dressing placed. Patient waken taken to PACU in stable condition. Please note spinal cord monitoring was utilized at the procedure no changes noted. Mignon Degroot was present out the entire procedure involved patient positioning complex portion of the surgery and final skin closure. I attest to the content of the Intraoperative Record and any orders documented therein. Any exceptions are noted below.
--- NOTE | 2024-09-05 10:24 | Fluoroscopy Report ---
FL cervical 2-3V CLINICAL HISTORY: ACDF C4-C7 TECHNIQUE: 2 views were obtained with the C-arm in the OR with the above procedure. Total fluoroscopy time was 11.2 seconds. Radiation dose was 1.26 mGy. Comparison: Comparison is made to MRI cervical spine 07/19/2024 FINDINGS/IMPRESSION: Intraoperative images were obtained of ACDF C4-C7. Please correlate with intraoperative fluoroscopy and operative report. ACT 112: Negative or not required by law. Electronically signed by: Darrel Salcedo M.D. 09/05/2024 10:23 AM
[2024-09-05] MEDS: HYDROmorphone INJ 2 MG/ML SYR/VIAL IV PRN (10:33)
[2024-09-05] MEDS ORDERED: NALOXONE HCL 0.4 MG/1 ML VIAL/CARP IV PRN (12:44)
[2024-09-05] MEDS ORDERED: bisacodyL 10 MG SUPP PR PRN (12:44)
[2024-09-05] MEDS ORDERED: HYDROmorphone INJ 1 MG/ML SYRINGE IV PRN (12:44)
[2024-09-05] MEDS ORDERED: FAMOTIDINE 20 MG TAB PO PRN (12:44)
[2024-09-05] MEDS ORDERED: DO NOT ADMINISTER PNEUMOCOCCAL VACCINE PRN (12:44)
[2024-09-05] MEDS ORDERED: dexAMETHasone 8 MG in SYRINGE 0 ML IV PRN (12:44)
[2024-09-05] MEDS ORDERED: ACETAMINOPHEN 1,000 MG/100 ML VIAL IV PRN (12:44)
[2024-09-05] MEDS ORDERED: hydrOXYzine HCl 25 MG TAB PO PRN (12:44)
[2024-09-05] MEDS ORDERED: HYDROmorphone INJ 0.5 MG/0.5 ML SYR IV PRN (12:44)
[2024-09-05] MEDS ORDERED: METOCLOPRAMIDE HCL INJ 5 MG/ML 2 ML VIAL IV PRN (12:44)
[2024-09-05] MEDS ORDERED: ALBUT/IPRATROP 3MG/0.5MG NEB 3 ML VIAL INH PRN (12:44)
[2024-09-05] MEDS ORDERED: MAGNESIUM HYDROXIDE SUSP 30 ML UDC PO PRN (12:44)
[2024-09-05] MEDS ORDERED: SOD PHOSPHATE/SOD BIPHOSPHATE ENEMA 132 ML BTL PR PRN (12:44)
[2024-09-05] MEDS ORDERED: traMADol HCL 50 MG TABLET PO PRN (12:44)
[2024-09-05] MEDS ORDERED: ALUMINUM/MAGNESIUM SUSP 30 ML UDC PO PRN (12:44)
[2024-09-05] MEDS ORDERED: DO NOT ADMINISTER FLU VACCINE PRN (12:44)
[2024-09-05] MEDS ORDERED: LORazepam 2 MG/1 ML VIAL IV PRN (12:44)
[2024-09-05] MEDS ORDERED: LORazepam 0.5 MG TAB PO PRN (12:44)
[2024-09-05] MEDS ORDERED: diphenhydrAMINE Capsule 25 MG CAP PO PRN (12:44)
[2024-09-05] MEDS ORDERED: CYCLOBENZAPRINE HCL 10 MG TAB PO PRN (12:44)
[2024-09-05] MEDS ORDERED: RACEPINEPHRINE 2.25% NEBU SOLN 0.5 ML VIAL INH PRN (12:44)
[2024-09-05] MEDS: ceFAZolin 330 MG/ML 1 GM VIAL ONE (13:33)
[2024-09-05] MEDS: LR 15ML/HR IV SCH (13:35)
--- NOTE | 2024-09-05 14:16 | Anesthesiology Progress Note ---
Date of Service September 05, 2024 Anesthesia Post Procedure Vital Signs Vital Signs: Temp Pulse Resp BP BP Pulse Ox Pulse Ox 09/05/24 13:45 36.5 C 72 14 128/20 L 97 09/05/24 13:14 36.5 C 70 14 119/81 99 09/05/24 12:56 71 17 98 09/05/24 12:45 36.5 C 76 14 130/85 97 09/05/24 12:45 97 09/05/24 12:15 19 L 12 131/93 99 09/05/24 12:00 67 12 122/83 99 09/05/24 11:50 70 12 132/83 99 09/05/24 11:40 78 12 124/87 99 09/05/24 11:30 36.5 C 85 14 127/86 100 09/05/24 11:20 81 17 133/89 100 09/05/24 11:10 75 17 135/80 96 09/05/24 11:00 73 12 140/91 98 09/05/24 10:50 74 17 139/90 100 09/05/24 10:45 73 20 154/87 H 100 09/05/24 10:35 74 19 146/100 H 100 09/05/24 10:25 71 12 155/94 H 100 09/05/24 10:15 73 12 135/96 100 09/05/24 10:05 79 14 147/97 H 100 09/05/24 09:58 36.4 C L 85 17 158/108 H 100 09/05/24 06:46 36.9 C 78 20 134/89 97 O2 Del Method O2 Del Method O2 Flow Rate O2 Flow Rate 09/05/24 13:45 Nasal Cannula 2 09/05/24 13:14 Nasal Cannula 2 09/05/24 12:56 Nasal Cannula 2 09/05/24 12:45 Nasal Cannula 2 09/05/24 12:45 Nasal Cannula 2 09/05/24 12:15 Nasal Cannula 3 09/05/24 12:00 Nasal Cannula 3 09/05/24 11:50 Nasal Cannula 3 09/05/24 11:40 Nasal Cannula 3 09/05/24 11:30 Nasal Cannula 3 09/05/24 11:20 Nasal Cannula 3 09/05/24 11:10 Nasal Cannula 3 09/05/24 11:00 Nasal Cannula 3 09/05/24 10:50 Nasal Cannula 3 09/05/24 10:45 Oxymask 6 09/05/24 10:35 Oxymask 6 09/05/24 10:25 Oxymask 6 09/05/24 10:15 Oxymask 10 09/05/24 10:05 Oxymask 10 09/05/24 09:58 Oxymask 10 09/05/24 06:46 Room Air Pain Intensity Right Shoulder: Pain Intensity: 3 Anterior Neck: Pain Intensity: 6 Transfer of Care Handoff Completed per policy Notes Mental Status: alert / awake / arousable and participated in evaluation Nausea / Vomiting: adequately controlled Pain: adequately controlled Airway Patency, RR, SpO2: stable & adequate BP & HR: stable & adequate Hydration State: stable & adequate Anesthetic Complications: no major complications apparent and Pt Satisfied with anesthetic care
--- NOTE | 2024-09-05 16:11 | Hospitalist Consultation ---
Date of Consultation September 05, 2024 Assessment & Plan (1) Neuroforaminal stenosis of cervical spine: This is a 54 year old female who presented to the hospital today for an elective cervical surgery with Dr. Robledo. Past medical history includes asthma, hypertension, allergic rhinitis, and cervical radiculopathy. s/p anterior cervical discectomy w/ Dr. Robledo on 09/05 Pain management, bowel regimen, DVT prophylaxis, and diet per primary team. (2) Severe persistent asthma: Continue home inhalers continue Montelukast (3) Hypertension: Normotensive on HCTZ outpatient, plan to continue. Plan DVT prophylaxis: SCD's. Diet: clear liquid Disposition: medical, primary team orthospine. Updated at bedside 09/05. History of Present Illness Attending Physician: Nolan Robledo, DO History of Present Illness This is a 54 year old female who presented to the hospital today for an elective cervical surgery with Dr. Robledo. Past medical history includes asthma, hypertension, allergic rhinitis, and cervical radiculopathy. The patient was seen and examined following her operation today. Patient was drowsy at time of encounter. at bedside. Patient states she feels like she has to burp but it will not come out. She was asking for additional ice c ream as well. She stated she felt tired. Her neck pain was controlled at time of my encounter. She denied any additional complaints including chest pain, shortness of breath, abdominal pain, N/V. Allergies Allergy/AdvReac Type Severity Reaction Status Date / Time No Known Allergies Allergy Verified 09/05/24 06:49 Home Medications Medication Instructions Recorded Confirmed Type ipratropium 0.5 mg-albuterol 3 mg 3 ml inhalation Q4H PRN shortness 08/24/23 09/05/24 Rx (2.5 mg base)/3 mL nebulization of breath #90 mL soln turmeric root extract 500 mg tablet 1,000 mg PO DAILY 11/07/23 09/05/24 History hydrochlorothiazide 12.5 mg tablet 12.5 mg PO DAILY #90 tabs 03/20/24 09/05/24 Rx baclofen 20 mg tablet 20 mg PO TID 90 days #270 tabs 05/10/24 09/05/24 Rx celecoxib 200 mg capsule 200 mg PO BID 90 days #180 caps 05/10/24 09/05/24 Rx cyclobenzaprine 10 mg tablet 10 mg PO HS PRN muscle spasm 90 05/10/24 09/05/24 Rx days #90 tabs montelukast 10 mg tablet 10 mg PO DAILY #90 tabs 05/10/24 09/05/24 Rx nystatin 100,000 unit/gram topical 1 applic topical BID PRN Rash #30 05/10/24 09/05/24 Rx cream grams clotrimazole-betamethasone 1 1 applic topical BID #45 grams 05/11/24 09/05/24 Rx %-0.05 % topical cream multivitamin 1 tab PO DAILY 06/14/24 09/05/24 History omalizumab 150 mg/mL subcutaneous 300 mg (2 mL) subcut .COMPLEX #2 mL 06/28/24 09/05/24 Rx syringe (Xolair) fluticasone 500 mcg-salmeterol 50 1 inh inhalation BID 08/21/24 09/05/24 History mcg/dose blistr powdr for inhalation (Advair Diskus) ipratropium 20 mcg-albuterol 100 1 puff inhalation BID 08/21/24 09/05/24 History mcg/actuation mist for inhalation (Combivent Respimat) cholecalciferol (vitamin D3) 125 125 mcg PO DAILY 09/05/24 09/05/24 History mcg (5,000 unit) tablet (Vitamin D3) multivitamin 1 tab PO DAILY 09/05/24 09/05/24 History oxycodone 5 mg tablet 5 mg PO Q6H PRN pain #30 tabs 09/05/24 Rx tramadol 50 mg tablet 50 mg PO Q6H PRN pain, moderate 09/05/24 Rx #30 tabs Patient History Medical History Allergic rhinitis Cervical radiculopathy Cervical pain Abnormal serum protein electrophoresis PCP monitoring Hypertension controlled, stable per pt COVID-19 (~2022) no hospitalization; symptoms resolved Obesity Asthma severe; significant improvement since starting Xolair; uses rescue inhaler on occasion Thrombocytosis chronic Adenomyosis Right shoulder pain seeing PT Surgical History History of surgery Status post lumbar spine surgery for decompression of spinal cord H/O cervical spine surgery Hx of tubal ligation Hx of colonoscopy H/O oral surgery History of hysteroscopy History of dilation and curettage Family History Father Cirrhosis Mother Hepatitis Aunt Ovarian cancer maternal Other Diabetes Denies family history of Prostate cancer Myocardial infarction Breast cancer Colorectal cancer Stroke Social History Smoking Status: Never smoker Second Hand Exposure: No; Do You Dip or Chew Tobacco: No; Tobacco Cessation Education Requested by Patient: No Hx Alcohol Use: No Hx Substance Use: No Preferred Language: Spanish Communication Ability: Effective Visual Impairment: No Limitations Hearing Ability: Normal Digitizer Required: No Beliefs That Will Affect Care: None marital status: Current Living Situation: Spouse current occupational status: employed Other Information That Helps Us Care for You: No Feels Safe at Home: Yes Safety Concerns: Feels Safe At This Time Childhood Exposure to Second-Hand Smoke: Yes (grandparents) caffeine: No Dental Care, Regularly: Yes Physical Activity Frequency: Does not Exercise Seatbelt Use: always Sunscreen Use: Yes Assistive Devices: Glasses Assistive Devices Comment: wears R wrist splint at night; reading glasses Physical Exam Constitutional: WD/WN, vitals as above Eyes: PERRL, conjunctivae normal, anicteric sclerae Respiratory: breathing unlabored Cardiovascular: well perfused Musculoskeletal: cervical collar in place Skin: no rashes, warm and dry Psychiatric: drowsy, oriented Results & Data Results & Data Vital Signs (Past 12 Hours) Vital Signs Temp Pulse Pulse Resp BP BP Pulse Ox 09/05/24 15:51 76 18 120/72 96 09/05/24 15:04 71 17 93 09/05/24 14:44 72 18 117/78 99 09/05/24 14:14 72 14 97 09/05/24 13:45 36.5 C 72 14 128/20 L 97 09/05/24 13:14 36.5 C 70 14 119/81 99 09/05/24 12:56 71 17 98 09/05/24 12:45 36.5 C 76 14 130/85 97 09/05/24 12:45 09/05/24 12:15 19 L 12 131/93 99 09/05/24 12:00 67 12 122/83 99 09/05/24 11:50 70 12 132/83 99 09/05/24 11:40 78 12 124/87 99 09/05/24 11:30 36.5 C 85 14 127/86 100 09/05/24 11:20 81 17 133/89 100 09/05/24 11:10 75 17 135/80 96 09/05/24 11:00 73 12 140/91 98 09/05/24 10:50 74 17 139/90 100 09/05/24 10:45 73 20 154/87 H 100 09/05/24 10:35 74 19 146/100 H 100 09/05/24 10:25 71 12 155/94 H 100 09/05/24 10:15 73 12 135/96 100 09/05/24 10:05 79 14 147/97 H 100 09/05/24 09:58 36.4 C L 85 17 158/108 H 100 09/05/24 06:46 36.9 C 78 20 134/89 97 Pulse Ox O2 Del Method O2 Del Method O2 Flow Rate O2 Flow Rate 09/05/24 15:51 Room Air 09/05/24 15:04 Room Air 09/05/24 14:44 Room Air 09/05/24 14:14 Nasal Cannula 2 09/05/24 13:45 Nasal Cannula 2 09/05/24 13:14 Nasal Cannula 2 09/05/24 12:56 Nasal Cannula 2 09/05/24 12:45 Nasal Cannula 2 09/05/24 12:45 97 Nasal Cannula 2 09/05/24 12:15 Nasal Cannula 3 09/05/24 12:00 Nasal Cannula 3 09/05/24 11:50 Nasal Cannula 3 09/05/24 11:40 Nasal Cannula 3 09/05/24 11:30 Nasal Cannula 3 09/05/24 11:20 Nasal Cannula 3 09/05/24 11:10 Nasal Cannula 3 09/05/24 11:00 Nasal Cannula 3 09/05/24 10:50 Nasal Cannula 3 09/05/24 10:45 Oxymask 6 09/05/24 10:35 Oxymask 6 09/05/24 10:25 Oxymask 6 09/05/24 10:15 Oxymask 10 09/05/24 10:05 Oxymask 10 09/05/24 09:58 Oxymask 10 09/05/24 06:46 Room Air PG Care Time/CCT Total # of Minutes Spent Total Time Spent with Patient: Total time spent is greater than 50% in coordination of care (as documented) at patient's floor/unit and/or counseling patient: Coding Level of Care Code 22075 IN/OBS CONSULT LVL 3,45M Diagnoses Neuroforaminal stenosis of cervical spine M48.02 Severe persistent asthma J45.50 Hypertension I10
[2024-09-05] MEDS: ONDANSETRON 4 MG OD TAB PO PRN (16:48)
[2024-09-05] MEDS: PROMETHAZINE 12.5 MG/50.5 ML BAG IV PRN (18:30)
[2024-09-05] MEDS: Albuterol HFA 8 GM Inhaler (Combivent Respimat P&T Subs) INH SCH (20:05)
[2024-09-05] MEDS: Ipratropium HFA Inhaler (Combivent Respimat P&T Subs) INH SCH (20:05)
[2024-09-05] MEDS: oxyCODONE HCL IR 5 MG TAB (IMMEDIATE RELEASE) PO PRN (20:11)
[2024-09-05] MEDS: DOCUSATE SODIUM/SENNA 50/8.6MG TAB PO SCH (20:11)
[2024-09-05] MEDS ORDERED: IPRATROPIUM BROMIDE/ALBUTEROL respimat INH INH SCH (21:00)
[2024-09-06] MEDS: COUGH DROP (SUGAR FREE) LOZ 24 LOZ/1 BOX BUCCAL ONE (02:14)
[2024-09-06] MEDS: POLYETHYLENE (MIRALAX) 17 GM PACK PO SCH (05:51)
[2024-09-06] MEDS: ACETAMINOPHEN 500 MG TAB PO PRN (07:30)
[2024-09-06] MEDS: dexAMETHasone 6 MG in SYRINGE 0 ML IV SCH (08:47)
[2024-09-06] MEDS: CHOLECALCIFEROL 125 MCG (5,000 UNITS) TAB PO SCH (08:47)
[2024-09-06] MEDS: MONTELUKAST SODIUM 10 MG TABLET PO SCH (08:48)
[2024-09-06] MEDS: FLUTICASONE/VILANTEROL 200/25MCG 14 PUFFS/INHALER INH SCH (08:48)
[2024-09-06] MEDS: hydroCHLOROthiazide 25 MG TAB PO SCH (08:48)
[2024-09-06] MEDS: ONDANSETRON INJ 2 MG/ML 2 ML VIAL IV PRN (09:12)
--- NOTE | 2024-09-06 10:28 | Discharge Summary ---
Date of Service September 06, 2024 Admission HPI Per Admitting Provider This is a 54-year-old female who presents with chronic persistent neck and arm pain a failed course of nonoperative care is here for surgical invention. Principal Diagnosis Cervical spinal stenosis with radiculopathy Discharge Data Allergies Allergy/AdvReac Type Severity Reaction Status Date / Time No Known Allergies Allergy Verified 09/05/24 06:49 Consultations 09/05/24 12:44 Consult Hospitalist Routine Procedures Performed Operation Date: 09/05/24 07:45 Actual Procedures p C4-C7 Anterior Cervical Discectomy and Fusion, with Spinal Cord Monitoring(Not Applicable) - Nolan Robledo DO Ordered Studies 09/05/24 07:45 FL cervical 2-3V Routine Hospital Course (1) Cervical radiculopathy due to degenerative joint disease of spine: Patient underwent anterior cervical discectomy and fusion tolerated this well was taken to orthopedic for postoperative. Postoperatively she was swallowing well. No hoarseness. Arm symptoms markedly improved. Excellent strength testing. Simply discharged home. Discharge orders and instructions from the chart for further review. Total Time Total Time Spent Total Time Spent (In Minutes): 20 minutes Discharge Plan Discharge Items Patient Disposition: Home - Self-Care Reason For Visit: Cervical Radiculopathy, Spinal Stenosis of Cervica Discharge Diagnosis: Cervical spinal stenosis with radiculopathy Activity: As commented below Non-emergency contact: Primary Care Provider Call non-emergency contact if: you have any medication questions Follow-up/Referrals: Sixto Sosa MD [Primary Care Provider] - Diet: Regular Addtl Attending Provider Instructions: ACTIVITY RECOMMENDATIONS: SELF CARE INSTRUCTIONS AFTER CERVICAL FUSIONS 1. No smoking. Smoking drastically decreases the chance of a solid fusion. 2. No bending, lifting more than 5 pounds, or twisting (roll like a log when turning in bed). 3. You may shower 3 days after surgery. Thoroughly dry wound. Do not soak in the tub. 4. Cervical collar: Must be worn at all times including sleeping. You may remove the brace only to bath, eat and if you are sitting in a recliner. 5. Please walk as much as you can for exercise. Gradually increase the distance that you walk as your endurance increases. 6. You may return to previous diet. SPECIAL CARE INSTRUCTIONS: VERY IMPORTANT TO READ AND REVIEW A. Do not take any anti-inflammatory medications (i.e. Indocin, Advil, Aspirin, Naprosyn, Aleve, Motrin, etc.) as these may inhibit the chance of a solid fusion. Tylenol is okay to take. B. Your surgical incision has been closed with a cosmetic suture under the skin that will dissolve in about 6 weeks. In 14 days, you can use a pair of clean scissors and cut the suture that is left outside of the skin at the ends of your incision. C. Complications are uncommon, but please contact us if you have any signs or symptoms of: 1. wound infection (fever higher than 102.5 degrees F, redness, separation of wound, drainage, or increasing pain from the incision) 2. blood clots in legs (pain, swelling, redness and warmth in legs) 3. urinary tract infection (fever higher than 102.5 degrees, burning upon urination or increased frequency of urination) 4. nerve problems (inability to walk on your toes or heels, numbness, loss of bowel or bladder control) 5. any other symptoms that concern you. D. Please call the office at if you have any concerns or questions about your operation or recovery. MANAGING PAIN AFTER SPINAL SURGERY 1. Narcotic medication is intended for short-term use and will be provided for surgical pain. Surgical pain usually lasts for a period of 4-6 weeks. Narcotic medication includes Percocet, Vicodin, Darvocet, Tylenol #3 or Lortab. 2. Longer-term pain is more appropriately treated with non-narcotic medication such as Tylenol ES. 3. Muscle spasm is not appropriately treated with narcotics. Muscle relaxers such as Soma, Flexeril or Skelaxin can be used along with Tylenol ES. 4. Remember that we all live with some "aches and pains". This is not unusual or uncommon after an injury or as we get older. 5. We will provide appropriate medication within the normal guidelines of their prescribed use. We will also be very cautious and aware of potential abuse and extended duration of patients' medication needs. 6. Please allow 2-3 days to process refills. Prescriptions will not be mailed but must be picked up at the office. FOLLOW UP VISIT: Keep your scheduled follow-up appointment. Any questions, please call the office at . Pending Studies at Discharge: No Stand-Alone Forms: My [facility], Smoking Cessation Medications and DC Order Prescriptions: New tramadol 50 mg tablet 50 mg PO Q6H PRN (Reason: pain, moderate) Qty: 30 0RF oxycodone 5 mg tablet 5 mg PO Q6H PRN (Reason: pain) Qty: 30 0RF Continued turmeric root extract 500 mg tablet 1,000 mg PO DAILY ipratropium-albuterol 0.5 mg-3 mg(2.5 mg base)/3 mL solution for nebulization 3 ml inhalation Q4H PRN (Reason: shortness of breath) Qty: 90 5RF hydrochlorothiazide 12.5 mg tablet 12.5 mg PO DAILY Qty: 90 3RF montelukast 10 mg tablet 10 mg PO DAILY Qty: 90 3RF nystatin 100,000 unit/gram cream 1 applic topical BID PRN (Reason: Rash) Qty: 30 1RF baclofen 20 mg tablet 20 mg PO TID 90 Days Qty: 270 3RF cyclobenzaprine 10 mg tablet 10 mg PO HS PRN (Reason: muscle spasm) 90 Days Qty: 90 3RF clotrimazole-betamethasone 1-0.05 % cream 1 applic TOP BID Qty: 45 1RF Xolair 150 mg/mL syringe 300 mg subcut .COMPLEX Qty: 2 11RF Rx Instructions: INJECT 300 mg subcutaneously EVERY 4 WEEKS APPROVED 06/09/24-06/09/25 FREE THRU [employer] multivitamin Tablet 1 tab PO DAILY fluticasone propion-salmeterol [Advair Diskus] 500-50 mcg/dose blister with device 1 inh inhalation BID Combivent Respimat 20-100 mcg/actuation mist 1 puff inhalation BID multivitamin [Hair,Nails and Skin Vitamin] Tablet 1 tab PO DAILY cholecalciferol (vitamin D3) [Vitamin D3] 125 mcg (5,000 unit) Tablet 125 mcg PO DAILY Discontinued celecoxib 200 mg capsule 200 mg PO BID 90 Days Qty: 180 3RF Rx Instructions: take with food Discharge Orders: Discharge Order (Routine); Ordered 09/06/24 Ordered By: Nolan Robledo Admission Data Admit Date/Time: 09/05/24 09:46 Attending Provider: Nolan Robledo Admit Provider: Nolan Robledo Primary Care Provider: Sixto Sosa V. Other Providers: Neo Moses
--- NOTE | 2024-09-06 11:39 | Hospitalist Progress Note ---
Date of Service September 06, 2024 Assessment & Plan (1) Hypertension: Plan: BP continues to be normotensive on HCTZ outpatient, plan to continue. suspect dizziness secondary to narcotic usage, educated patient on this today. use antiemetics prn to associate w/ nausea which is likely secondary to narcotics. (2) Neuroforaminal stenosis of cervical spine: Plan: This is a 54 year old female who presented to the hospital today for an elective cervical surgery with Dr. Robledo. Past medical history includes asthma, hypertension, allergic rhinitis, and cervical radiculopathy. s/p anterior cervical discectomy w/ Dr. Robledo on 09/05 Pain management, bowel regimen, DVT prophylaxis, and diet per primary team. (3) Severe persistent asthma: Plan: Continue home inhalers continue Montelukast Plan DVT prophylaxis: SCD's. Diet: clear liquid Disposition: medical, primary team orthospine. Patient deemed stable for discharge from a medical standpoint. At this time the hospitalist service will sign off, please call us back with questions or concerns. Admission and Anticipated Discharge Date Admission Date: September 05, 2024 Subjective Patient seen and examined this morning. Patient doing well today. reports some nausea but zofran effective in controlling this. She states she feels light headed upon standing. Denies SOB or chest pain. Has been tolerating a full liquid diet. States she had an episode of vomiting last night. Physical Exam Constitutional: WD/WN, vitals as above Eyes: PERRL, conjunctivae normal, anicteric sclerae Respiratory: breathing unlabored Cardiovascular: well perfused Psychiatric: A+Ox3, euthymic affect Results & Data Results & Data Vital Signs (Past 12 Hours) Vital Signs Temp Pulse Resp BP Pulse Ox O2 Del Method 09/06/24 11:14 36.8 C 78 14 128/85 97 Room Air 09/06/24 11:08 68 16 97 Room Air 09/06/24 09:14 36.6 C 70 14 109/75 98 Room Air 09/06/24 07:14 36.5 C 68 14 127/84 99 Room Air 09/06/24 07:10 Room Air 09/06/24 07:07 68 16 97 Room Air 09/06/24 07:03 68 16 97 Room Air 09/06/24 05:52 36.3 C L 80 18 128/83 98 Room Air 09/06/24 03:52 36.6 C 65 16 126/80 95 Room Air 09/06/24 03:30 67 18 96 Room Air 09/06/24 01:59 36.6 C 64 16 118/80 97 Room Air 09/05/24 23:59 36.4 C L 69 16 106/71 94 Room Air PG Care Time/CCT Total # of Minutes Spent Total Time Spent with Patient: Total time spent is greater than 50% in coordination of care (as documented) at patient's floor/unit and/or counseling patient: Coding Level of Care Code 66288 SUB INP/OBS CARE 2/35MIN Diagnoses Hypertension I10 Neuroforaminal stenosis of cervical spine M48.02 Severe persistent asthma J45.50
[2024-09-07 07:04] VITALS: TEMP 98.2
[2024-09-07 07:48] VITALS: PULSE 75; RESP 16; O2SAT 99
[2024-09-07 10:31] VITALS: BP 143/83
--- NOTE | 2024-09-07 12:35 | Orthopedic Progress Note ---
Date of Service September 07, 2024 Assessment & Plan (1) Neuroforaminal stenosis of cervical spine: Plan: At this time we will discontinue her drain and discharge her home today. Discharge orders instructions from the chart for further review. Admission and Anticipated Discharge Date Admission Date: September 05, 2024 Subjective Patient is feeling much better today. No swallowing difficulties. No hoarseness. Good improvement of her arm symptoms. Physical Exam Physical Exam: Patient is good strength testing. Appears comfortable. Results & Data Vital Signs (Past 12 Hours) Vital Signs Temp Pulse Resp BP BP Pulse Ox O2 Del Method 09/07/24 10:30 36.8 C 75 16 128/86 143/83 H 99 09/07/24 07:05 75 16 99 Room Air 09/07/24 07:04 36.8 C 73 18 128/86 100 Room Air 09/07/24 02:55 36.5 C 70 16 143/83 H 99 Room Air 09/07/24 02:37 68 18 98 Room Air Queries Orthopedic Spine Obesity: Yes
== END 2024-09-07 14:43 | disposition home or self-care (01) ==
LOC: ASU 06:24 → 3E 06:24